=== PATIENT | male | born 1955 | race Caucasian/White ===

== ENCOUNTER 2016-11-28 19:26 | Inpatient (IN) | payer SELFPAY ==
[2016-11-28] VITALS (8 sets, daily range): BP systolic 111–122; BP diastolic 59–67; PULSE 104–122; RESP 16–23; TEMP 96.9; O2SAT 93–98
[~2016-11-28] VITALS: Ht 177.8 cm; Wt 96.2 kg
[2016-11-28] MEDS ORDERED: ONDANSETRON HCL 4 MG/2 ML VIAL ONE (19:33)
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
[2016-11-28 19:55] LABS: AUTOMATED NEUTROPHIL # 2.1 TH/MM3 (1.8-7.7); BASOPHIL # 0.1 TH/MM3 (0-0.2); BASOPHIL % 2.2 % (0.0-2.0); EOSINOPHIL # 0.1 TH/MM3 (0-0.4); EOSINOPHIL % 1.2 % (0.0-4.0); HEMATOCRIT 35.8 % (39.0-51.0); HEMO FLAGS DIFF FINAL; LYMPH % 44.8 % (9.0-44.0); LYMPHOCYTE # 2.4 TH/MM3 (1.0-4.8); MEAN CORPUSCULAR HEMOGLOBIN 33.8 PG (27.0-34.0); MEAN CORPUSCULAR HGB CONC 33.5 % (32.0-36.0); NEUT % 39.8 % (16.0-70.0); PLATELET COUNT 171 TH/MM3 (150-450); RED BLOOD COUNT 3.54 MIL/MM3 (4.50-5.90); RED CELL DISTRIBUTION WIDTH 16.1 % (11.6-17.2); WHITE BLOOD COUNT 5.3 TH/MM3 (4.0-11.0)
[2016-11-28] MEDS ORDERED: IOHEXOL 350 MG/ML 10 ML VIAL (for RAD DIAG) IV ONE (19:58)
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
[2016-11-28 20:00] LABS: I-STAT POTASSIUM 3.7 MMOL/L (3.5-4.9)
[2016-11-28] MEDS ORDERED: ENALAPRILAT 1.25 MG/ML VIAL IV PRN (20:00)
[2016-11-28] MEDS ORDERED: MISCELLANEOUS NURSING INFORMATION XX SCH (20:00)
[2016-11-28] MEDS ORDERED: CHLORHEXIDINE GLUCONATE 2 % 1 PACK (2 CLOTHS) TOP PRN (20:00)
[2016-11-28] MEDS ORDERED: ONDANSETRON HCL 4 MG/2 ML VIAL IV PRN (20:00)
[2016-11-28] MEDS ORDERED: MORPHINE SULFATE 4 MG/ML INJ IV PRN (20:00)
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
[2016-11-28 20:06] LABS: APTT (PATIENT) 22.3 SEC (24.3-30.1); PROTHROMBIN TIME - PATIENT 10.7 SEC (9.8-11.6)
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
[2016-11-28] MEDS: LACTATED RINGER'S 1000 ML INJ 1,000 ML IV SCH (20:46)
[2016-11-28] MEDS: PANTOPRAZOLE SODIUM 40 MG VIAL IVP SCH (20:47)
[2016-11-28 22:05] LABS: REVIEW FLAG FINAL
[2016-11-28 22:07] LABS: AMPHETAMINE, URINE NEG (NEG); BARBITURATES, URINE NEG (NEG); COCAINE, URINE NEG (NEG)
[2016-11-28] MEDS ORDERED: LORazepam 2 MG/ML VIAL IV SCH (23:00)
[2016-11-29] VITALS (14 sets, daily range): BP systolic 122–149; BP diastolic 68–86; PULSE 108–141; RESP 19–25; TEMP 97.9–98.5; O2SAT 94–96
[2016-11-29 00:13] LABS: REVIEW FLAG FINAL
[2016-11-29] MEDS: CHLORHEXIDINE GLUCONATE 2 % 1 PACK (2 CLOTHS) TOP SCH (04:30)
[2016-11-29] MEDS: LACTATED RINGER'S 1000 ML INJ 1,000 ML IV SCH ×3 (04:30→17:08)
[2016-11-29 04:40] LABS: HEMATOCRIT 28.1 % (39.0-51.0); REVIEW FLAG FINAL
[2016-11-29 04:41] LABS: AUTOMATED NEUTROPHIL # 10.7 TH/MM3 (1.8-7.7); BASOPHIL % 0.2 % (0.0-2.0); HEMATOCRIT 28.2 % (39.0-51.0); HEMO FLAGS DIFF FINAL; LYMPH % 4.8 % (9.0-44.0); LYMPHOCYTE # 0.6 TH/MM3 (1.0-4.8); MEAN CELL VOLUME 101.2 FL (80.0-100.0); MEAN CORPUSCULAR HGB CONC 33.6 % (32.0-36.0); MONO % 8.4 % (0.0-8.0); NEUT % 86.6 % (16.0-70.0); PLATELET COUNT 128 TH/MM3 (150-450); RED BLOOD COUNT 2.78 MIL/MM3 (4.50-5.90); RED CELL DISTRIBUTION WIDTH 15.8 % (11.6-17.2); WHITE BLOOD COUNT 12.4 TH/MM3 (4.0-11.0)
[2016-11-29 05:06] LABS: BICARBONATE 24.1 MEQ/L (21.0-32.0)
[2016-11-29] MEDS: MORPHINE SULFATE 4 MG/ML INJ IV PRN ×4 (05:14→22:40)
[2016-11-29] MEDS: THIAMINE HCL 100 MG TAB PO SCH (08:52)
[2016-11-29] MEDS: FOLIC ACID 1 MG TAB PO SCH (08:52)
[2016-11-29] MEDS ORDERED: LACTATED RINGER'S 1000 ML INJ 1,000 ML IV ONE (09:45)
[2016-11-29] MEDS ORDERED: FLUMAZENIL 0.5 MG/5 ML VIAL IV PUSH PRN (11:00)
[2016-11-29] MEDS: LORazepam 1 MG TAB PO PRN (11:37)
[2016-11-29] MEDS: LIDOCAINE HCL 5% PATCH T-DERMAL SCH (11:37)
[2016-11-29 13:08] LABS: HEMATOCRIT 26.2 % (39.0-51.0); REVIEW FLAG FINAL
[2016-11-29] MEDS: LORazepam 2 MG/ML VIAL IV PUSH PRN ×5 (13:14→22:40)
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
[2016-11-29] MEDS: PANTOPRAZOLE SODIUM 40 MG VIAL IVP SCH (19:53)
[2016-11-29] MEDS ORDERED: DEXMEDETOMIDINE 200 MCG/50 ML NS Premix IV SCH (23:30)
[2016-11-29] MEDS ORDERED: SODIUM CHLOR 0.9% 1000 ML INJ 1,000 ML IV SCH (23:30)
[2016-11-29] MEDS ORDERED: DEXMEDETOMIDINE 200 MCG in NS 50 ML IV SCH (23:45)
[2016-11-30] VITALS (14 sets, daily range): BP systolic 114–150; BP diastolic 68–88; PULSE 70–138; RESP 17–23; TEMP 97–98.8; O2SAT 92–100
[2016-11-30] MEDS: METOPROLOL TARTRATE 5 MG/5 ML VIAL IV PUSH SCH ×6 (00:33→23:52)
[2016-11-30] MEDS: LORazepam 2 MG/ML VIAL IV PUSH PRN ×3 (00:42→21:56)
[2016-11-30] MEDS: LACTATED RINGER'S 1000 ML INJ 1,000 ML IV SCH ×5 (00:57→22:42)
[2016-11-30 01:21] LABS: BLOOD, URINE NEG (NEG); GLUCOSE,URINE NEG (NEG); HYALINE CAST, URINE 1 /lpf (RARE); KETONE, URINE NEG (NEG); MUCUS URINE FEW /lpf (OCC); NITRITE,URINE NEG (NEG); PH, URINE 7.5 (5.0-8.5); SQUAMOUS EPITHELIAL CELL URINE <1 /hpf (0-5); URINE COLOR YELLOW (YELLW/STRAW)
[2016-11-30 01:22] LABS: COMMENT (UR) CULT NOT INDICATED; CULTURE IF INDICATED CULT NOT INDICATED
[2016-11-30] MEDS: CHLORHEXIDINE GLUCONATE 2 % 1 PACK (2 CLOTHS) TOP SCH (04:00)
[2016-11-30] MEDS ORDERED: DEXMEDETOMIDINE 200 MCG in NS 50 ML IV SCH (04:00)
[2016-11-30 04:56] LABS: ALT (GPT) 93 U/L (12-78); ANION GAP 7 MEQ/L (5-15); AST (GOT) 146 U/L (15-37); BICARBONATE 29.5 MEQ/L (21.0-32.0); BLOOD UREA NITROGEN 7 MG/DL (7-18); CHLORIDE 106 MEQ/L (98-107); GLOMERULAR FILTRATION RATE 139 ML/MIN (>89); POTASSIUM 3.9 MEQ/L (3.5-5.1); SODIUM (NA) 142 MEQ/L (136-145)
[2016-11-30 04:58] LABS: ALKALINE PHOSPHATASE 63 U/L (45-117); TOTAL BILIRUBIN ADULT 0.7 MG/DL (0.2-1.0)
[2016-11-30 05:28] LABS: AUTOMATED NEUTROPHIL # 7.3 TH/MM3 (1.8-7.7); BASOPHIL % 0.2 % (0.0-2.0); EOSINOPHIL % 0.1 % (0.0-4.0); HEMATOCRIT 23.9 % (39.0-51.0); HEMO FLAGS DIFF FINAL; LYMPH % 5.2 % (9.0-44.0); LYMPHOCYTE # 0.5 TH/MM3 (1.0-4.8); MEAN CELL VOLUME 101.9 FL (80.0-100.0); MEAN CORPUSCULAR HEMOGLOBIN 34.3 PG (27.0-34.0); MEAN CORPUSCULAR HGB CONC 33.7 % (32.0-36.0); MONO % 11.2 % (0.0-8.0); NEUT % 83.3 % (16.0-70.0); PLATELET COUNT 110 TH/MM3 (150-450); RED BLOOD COUNT 2.34 MIL/MM3 (4.50-5.90); RED CELL DISTRIBUTION WIDTH 15.5 % (11.6-17.2); WHITE BLOOD COUNT 8.8 TH/MM3 (4.0-11.0)
[2016-11-30] MEDS: THIAMINE HCL 100 MG TAB PO SCH (09:00)
[2016-11-30] MEDS: FOLIC ACID 1 MG TAB PO SCH (09:00)
[2016-11-30] MEDS: LIDOCAINE HCL 5% PATCH T-DERMAL SCH (09:14)
[2016-11-30] MEDS ORDERED: DEXMEDETOMIDINE INJ 400 MCG in SODIUM CHLORIDE 0.9% INJ 96 ML IV SCH (11:45)
[2016-11-30] MEDS ORDERED: POTASSIUM PHOSPHATE MONOBASIC 500 MG TAB PO PRN (14:00)
[2016-11-30] MEDS ORDERED: POTASSIUM CHLORIDE 25 MEQ EFFERVESCENT TAB PO PRN (14:00)
[2016-11-30] MEDS ORDERED: MAGNESIUM SULFATE INJ 4 GM in SODIUM CHLORIDE 0.9% INJ 92 ML IV PRN (14:00)
[2016-11-30] MEDS ORDERED: SODIUM PHOSPHATE INJ 30 MMOL in SODIUM CHLOR 0.9% 250 ML INJ 240 ML IV PRN (14:00)
[2016-11-30] MEDS ORDERED: POTASSIUM CHLOR 40 MEQ PREMIX 100 ML IV PRN ×2 (14:00)
[2016-11-30] MEDS ORDERED: POTASSIUM CHLOR 20 MEQ PREMIX 100 ML IV PRN (14:00)
[2016-11-30] MEDS ORDERED: POTASSIUM PHOSPHATE INJ 30 MMOL in SODIUM CHLOR 0.9% 250 ML INJ 250 ML IV PRN (14:00)
[2016-11-30] MEDS ORDERED: RESP: ALBUTEROL 2.5 MG/IPRATROPIUM 0.5 MG NEB (PRN) NEB (14:00)
[2016-11-30] MEDS ORDERED: MAGNESIUM SULFATE INJ 2 GM in SODIUM CHLORIDE 0.9% INJ 96 ML IV PRN (14:00)
[2016-11-30] MEDS ORDERED: POTASSIUM PHOSPHATE MONOBASIC 500 MG TAB PO/TUBE PRN (14:00)
[2016-11-30] MEDS ORDERED: MAGNESIUM OXIDE 400 MG TAB PO PRN (14:00)
[2016-11-30] MEDS: RESP: ALBUTEROL 2.5 MG/IPRATROPIUM 0.5 MG NEB (SCH) NEB ×2 (14:41→21:14)
[2016-11-30] MEDS: ENOXAPARIN SODIUM 30 MG/0.3 ML SYRINGE SQ SCH (15:00)
[2016-11-30] MEDS: chlordiazePOXIDE 25 MG CAP PO PRN ×3 (15:36→23:51)
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
[2016-11-30] MEDS: NICOTINE 14 MG/24 HR PATCH T-DERMAL SCH (16:26)
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
[2016-11-30] MEDS: MULTIVITAMIN INJ 10 ML, THIAMINE INJ 100 MG, FOLIC ACID INJ 1 MG in SODIUM CHLORID 0.9%... IV SCH (17:24)
[2016-11-30] MEDS: LORazepam 1 MG TAB PO PRN (17:39)
[2016-11-30] MEDS: DOCUSATE SODIUM 100 MG CAP PO SCH (19:52)
[2016-11-30] MEDS: MAGNESIUM HYDROXIDE SUSP 30 ML CUP PO SCH (19:52)
[2016-11-30] MEDS: MORPHINE SULFATE 4 MG/ML INJ IV PRN (20:09)
[2016-11-30] MEDS: LORazepam 2 MG TAB PO PRN (22:41)
[2016-12-01] VITALS (14 sets, daily range): BP systolic 101–162; BP diastolic 59–86; PULSE 98–142; RESP 20–28; TEMP 97–100; O2SAT 96–100
[2016-12-01] MEDS: ENOXAPARIN SODIUM 30 MG/0.3 ML SYRINGE SQ SCH ×2 (02:33→14:04)
[2016-12-01] MEDS: LORazepam 2 MG/ML VIAL IV PUSH PRN ×12 (02:33→17:23)
[2016-12-01] MEDS: RESP: ALBUTEROL 2.5 MG/IPRATROPIUM 0.5 MG NEB (SCH) NEB ×4 (02:53→20:16)
[2016-12-01] MEDS: CHLORHEXIDINE GLUCONATE 2 % 1 PACK (2 CLOTHS) TOP SCH (03:56)
[2016-12-01 05:02] LABS: HEMATOCRIT 24.2 % (39.0-51.0); MEAN CELL VOLUME 100.9 FL (80.0-100.0); MEAN CORPUSCULAR HEMOGLOBIN 33.9 PG (27.0-34.0); MEAN CORPUSCULAR HGB CONC 33.6 % (32.0-36.0); PLATELET COUNT 121 TH/MM3 (150-450); RED CELL DISTRIBUTION WIDTH 15.3 % (11.6-17.2); REVIEW FLAG FINAL; WHITE BLOOD COUNT 9.2 TH/MM3 (4.0-11.0)
[2016-12-01] MEDS: MORPHINE SULFATE 4 MG/ML INJ IV PRN (05:03)
[2016-12-01] MEDS: METOPROLOL TARTRATE 5 MG/5 ML VIAL IV PUSH SCH ×3 (05:05→17:23)
[2016-12-01 05:38] LABS: BICARBONATE 29.1 MEQ/L (21.0-32.0)
[2016-12-01 05:41] LABS: POTASSIUM 2.9 MEQ/L (3.5-5.1)
[2016-12-01] MEDS: POTASSIUM CHLOR 20 MEQ PREMIX 100 ML IV PRN ×4 (05:45→10:10)
[2016-12-01] MEDS: chlordiazePOXIDE 25 MG CAP PO PRN ×2 (06:20→15:21)
[2016-12-01] MEDS: LACTATED RINGER'S 1000 ML INJ 1,000 ML IV SCH ×3 (07:17→21:32)
[2016-12-01] MEDS: REMOVE OLD PATCH T-DERMAL SCH (07:51)
[2016-12-01] MEDS: NICOTINE 14 MG/24 HR PATCH T-DERMAL SCH (07:51)
[2016-12-01] MEDS: DOCUSATE SODIUM 100 MG CAP PO SCH ×2 (07:51→21:18)
[2016-12-01] MEDS: LORazepam 1 MG TAB PO PRN ×2 (08:06→09:30)
[2016-12-01] MEDS: LORazepam 2 MG TAB PO PRN ×2 (08:08→21:17)
[2016-12-01] MEDS: LIDOCAINE HCL 5% PATCH T-DERMAL SCH (09:26)
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
[2016-12-01] MEDS ORDERED: METOPROLOL TARTRATE 5 MG/5 ML VIAL IV PUSH PRN (15:15)
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
[2016-12-01] MEDS: cloNIDine HCL 0.1 MG TAB PO SCH ×2 (15:53→21:18)
[2016-12-01] MEDS: MULTIVITAMIN INJ 10 ML, THIAMINE INJ 100 MG, FOLIC ACID INJ 1 MG in SODIUM CHLORID 0.9%... IV SCH (16:32)
[2016-12-01] MEDS: MAGNESIUM HYDROXIDE SUSP 30 ML CUP PO SCH (21:18)
[2016-12-02] VITALS (16 sets, daily range): BP systolic 105–148; BP diastolic 61–77; PULSE 88–126; RESP 25–31; TEMP 97.9–98.8; O2SAT 94–100
[2016-12-02] MEDS: METOPROLOL TARTRATE 5 MG/5 ML VIAL IV PUSH SCH ×3 (00:18→12:00)
[2016-12-02] MEDS: LORazepam 2 MG/ML VIAL IV PUSH PRN ×3 (01:52→21:22)
[2016-12-02] MEDS: LACTATED RINGER'S 1000 ML INJ 1,000 ML IV SCH ×3 (02:58→17:04)
[2016-12-02] MEDS: RESP: ALBUTEROL 2.5 MG/IPRATROPIUM 0.5 MG NEB (SCH) NEB ×3 (03:19→20:11)
[2016-12-02] MEDS: ENOXAPARIN SODIUM 30 MG/0.3 ML SYRINGE SQ SCH ×2 (03:30→16:22)
[2016-12-02] MEDS: LORazepam 1 MG TAB PO PRN ×2 (04:14→17:05)
[2016-12-02] MEDS: CHLORHEXIDINE GLUCONATE 2 % 1 PACK (2 CLOTHS) TOP SCH (04:14)
[2016-12-02 05:48] LABS: BICARBONATE 27.2 MEQ/L (21.0-32.0); MAGNESIUM 1.8 MG/DL (1.5-2.5); POTASSIUM 3.6 MEQ/L (3.5-5.1)
[2016-12-02] MEDS: chlordiazePOXIDE 25 MG CAP PO PRN (07:35)
[2016-12-02] MEDS: LIDOCAINE HCL 5% PATCH T-DERMAL SCH ×2 (09:00→17:37)
[2016-12-02] MEDS: DOCUSATE SODIUM 100 MG CAP PO SCH ×2 (09:33→21:22)
[2016-12-02] MEDS: REMOVE OLD PATCH T-DERMAL SCH (09:34)
[2016-12-02] MEDS: LACTULOSE SYRUP 20 GM/30 ML CUP PO SCH (09:34)
[2016-12-02] MEDS: cloNIDine HCL 0.1 MG TAB PO SCH ×2 (09:34→21:22)
[2016-12-02] MEDS: NICOTINE 14 MG/24 HR PATCH T-DERMAL SCH (09:34)
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
[2016-12-02] MEDS: MULTIVITAMIN INJ 10 ML, THIAMINE INJ 100 MG, FOLIC ACID INJ 1 MG in SODIUM CHLORID 0.9%... IV SCH (16:23)
[2016-12-02] MEDS: MAGNESIUM HYDROXIDE SUSP 30 ML CUP PO SCH (21:22)
[2016-12-03] VITALS (13 sets, daily range): BP systolic 107–159; BP diastolic 63–84; PULSE 86–122; RESP 17–25; TEMP 96.6–98.8; O2SAT 93–100
[2016-12-03] MEDS: POTASSIUM CHLOR 20 MEQ PREMIX 100 ML IV PRN (00:02)
[2016-12-03] MEDS: ENOXAPARIN SODIUM 30 MG/0.3 ML SYRINGE SQ SCH ×2 (03:12→14:56)
[2016-12-03] MEDS: CHLORHEXIDINE GLUCONATE 2 % 1 PACK (2 CLOTHS) TOP SCH (03:13)
[2016-12-03] MEDS: RESP: ALBUTEROL 2.5 MG/IPRATROPIUM 0.5 MG NEB (SCH) NEB ×4 (03:49→21:10)
[2016-12-03] MEDS: MORPHINE SULFATE 4 MG/ML INJ IV PRN ×2 (08:56→17:56)
[2016-12-03] MEDS: NICOTINE 14 MG/24 HR PATCH T-DERMAL SCH (08:56)
[2016-12-03] MEDS: REMOVE OLD PATCH T-DERMAL SCH (08:56)
[2016-12-03] MEDS: LACTULOSE SYRUP 20 GM/30 ML CUP PO SCH (08:56)
[2016-12-03] MEDS: DOCUSATE SODIUM 100 MG CAP PO SCH ×2 (08:56→20:18)
[2016-12-03] MEDS: cloNIDine HCL 0.1 MG TAB PO SCH ×3 (08:57→20:18)
[2016-12-03] MEDS: LIDOCAINE HCL 5% PATCH T-DERMAL SCH (08:57)
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
[2016-12-03] MEDS ORDERED: LACTATED RINGER'S 1000 ML INJ 1,000 ML IV ONE (10:15)
[2016-12-03] MEDS: MULTIVITAMIN INJ 10 ML, THIAMINE INJ 100 MG, FOLIC ACID INJ 1 MG in SODIUM CHLORID 0.9%... IV SCH (15:38)
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
[2016-12-03] MEDS: SODIUM CHLORIDE 0.9% FLUSH 10 ML FLUSH IV FLUSH PRN (17:58)
[2016-12-03] MEDS: LORazepam 1 MG TAB PO PRN (20:16)
[2016-12-03] MEDS: MAGNESIUM HYDROXIDE SUSP 30 ML CUP PO SCH (20:17)
[2016-12-03] MEDS: METOPROLOL TARTRATE 25 MG TAB PO SCH (20:24)
[2016-12-04] VITALS (9 sets, daily range): BP systolic 123–138; BP diastolic 66–82; PULSE 100–119; RESP 16–20; TEMP 97.1–99.1; O2SAT 90–98
[2016-12-04] MEDS: ENOXAPARIN SODIUM 30 MG/0.3 ML SYRINGE SQ SCH ×2 (02:23→14:42)
[2016-12-04] MEDS: LORazepam 1 MG TAB PO PRN ×3 (02:23→18:06)
[2016-12-04] MEDS: CHLORHEXIDINE GLUCONATE 2 % 1 PACK (2 CLOTHS) TOP SCH (02:23)
[2016-12-04] MEDS: RESP: ALBUTEROL 2.5 MG/IPRATROPIUM 0.5 MG NEB (SCH) NEB ×2 (02:30→07:35)
[2016-12-04 07:59] LABS: AUTOMATED NEUTROPHIL # 6.1 TH/MM3 (1.8-7.7); BASOPHIL % 0.4 % (0.0-2.0); EOSINOPHIL # 0.1 TH/MM3 (0-0.4); EOSINOPHIL % 1.3 % (0.0-4.0); HEMATOCRIT 24.9 % (39.0-51.0); HEMO FLAGS DIFF FINAL; LYMPH % 8.7 % (9.0-44.0); LYMPHOCYTE # 0.7 TH/MM3 (1.0-4.8); MEAN CELL VOLUME 103.6 FL (80.0-100.0); MEAN CORPUSCULAR HEMOGLOBIN 36.1 PG (27.0-34.0); MEAN CORPUSCULAR HGB CONC 34.8 % (32.0-36.0); MONO % 16.1 % (0.0-8.0); NEUT % 73.5 % (16.0-70.0); PLATELET COUNT 253 TH/MM3 (150-450); RED CELL DISTRIBUTION WIDTH 16.2 % (11.6-17.2); WHITE BLOOD COUNT 8.3 TH/MM3 (4.0-11.0)
[2016-12-04 08:14] LABS: ALT (GPT) 70 U/L (12-78); ANION GAP 8 MEQ/L (5-15); AST (GOT) 69 U/L (15-37); BICARBONATE 26.3 MEQ/L (21.0-32.0); BLOOD UREA NITROGEN 4 MG/DL (7-18); CHLORIDE 104 MEQ/L (98-107); GLOMERULAR FILTRATION RATE 165 ML/MIN (>89); MAGNESIUM 2.1 MG/DL (1.5-2.5); POTASSIUM 3.9 MEQ/L (3.5-5.1); SODIUM (NA) 138 MEQ/L (136-145)
[2016-12-04 08:16] LABS: ALKALINE PHOSPHATASE 87 U/L (45-117); TOTAL BILIRUBIN ADULT 0.6 MG/DL (0.2-1.0)
[2016-12-04] MEDS: DOCUSATE SODIUM 100 MG CAP PO SCH ×2 (08:26→21:01)
[2016-12-04] MEDS: METOPROLOL TARTRATE 25 MG TAB PO SCH ×2 (08:26→21:02)
[2016-12-04] MEDS: cloNIDine HCL 0.1 MG TAB PO SCH (08:27)
[2016-12-04] MEDS: LACTULOSE SYRUP 20 GM/30 ML CUP PO SCH (08:27)
[2016-12-04] MEDS: REMOVE OLD PATCH T-DERMAL SCH (08:27)
[2016-12-04] MEDS: NICOTINE 14 MG/24 HR PATCH T-DERMAL SCH (08:28)
[2016-12-04] MEDS: LIDOCAINE HCL 5% PATCH T-DERMAL SCH (08:28)
[2016-12-04] MEDS: MORPHINE SULFATE 4 MG/ML INJ IV PRN ×2 (08:32→21:04)
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
[2016-12-04] MEDS ORDERED: LISI-515 PO (11:04)
[2016-12-04] MEDS ORDERED: AMLO5 PO (11:04)
--- NOTE | 2016-12-04 12:07 | RADRPT ---
EXAM DATE/TIME: 12/04/2016 11:29 [place] COMPARISON: CHEST SINGLE AP, November 28, 2016, 19:22. INDICATIONS : Shortness of breath. MEDICAL HISTORY : None. SURGICAL HISTORY : None. ENCOUNTER: Initial ACUITY: 2 days PAIN SCORE: 0/10 LOCATION: Bilateral chest FINDINGS: Increasing density is identified in both lung bases. Heart and mediastinal structures are stable. Osseous structures are intact. CONCLUSION: New bibasilar airspace disease and small effusions. Souleymane Cameron MD on December 04, 2016 at 12:04 Board Certified Radiologist. This report was verified electronically.
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
[2016-12-04] MEDS: MULTIVITAMIN INJ 10 ML, THIAMINE INJ 100 MG, FOLIC ACID INJ 1 MG in SODIUM CHLORID 0.9%... IV SCH (18:01)
[2016-12-04] MEDS: MAGNESIUM HYDROXIDE SUSP 30 ML CUP PO SCH (21:00)
[2016-12-05] VITALS (7 sets, daily range): BP systolic 113–160; BP diastolic 65–94; PULSE 104–115; RESP 18–20; TEMP 97.7–98.9; O2SAT 94–98
[2016-12-05] MEDS: MORPHINE SULFATE 4 MG/ML INJ IV PRN ×4 (02:05→20:49)
[2016-12-05] MEDS: ENOXAPARIN SODIUM 30 MG/0.3 ML SYRINGE SQ SCH ×2 (02:05→13:54)
[2016-12-05] MEDS: SODIUM CHLORIDE 0.9% FLUSH 10 ML FLUSH IV FLUSH PRN ×2 (07:48→13:54)
[2016-12-05] MEDS: amLODIPine BESYLATE 5 MG TAB PO SCH (08:50)
[2016-12-05] MEDS: DOCUSATE SODIUM 100 MG CAP PO SCH ×2 (08:50→20:43)
[2016-12-05] MEDS: LACTULOSE SYRUP 20 GM/30 ML CUP PO SCH (08:50)
[2016-12-05] MEDS: METOPROLOL TARTRATE 25 MG TAB PO SCH ×2 (08:50→20:43)
[2016-12-05] MEDS: LIDOCAINE HCL 5% PATCH T-DERMAL SCH (08:51)
[2016-12-05] MEDS: NICOTINE 14 MG/24 HR PATCH T-DERMAL SCH (08:51)
[2016-12-05] MEDS: REMOVE OLD PATCH T-DERMAL SCH (08:51)
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
[2016-12-05] MEDS: LISINOPRIL 20 MG TAB PO SCH (15:00)
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
[2016-12-05] MEDS: MULTIVITAMIN INJ 10 ML, THIAMINE INJ 100 MG, FOLIC ACID INJ 1 MG in SODIUM CHLORID 0.9%... IV SCH (19:40)
[2016-12-05] MEDS: MAGNESIUM HYDROXIDE SUSP 30 ML CUP PO SCH (20:43)
[2016-12-06] VITALS (7 sets, daily range): BP systolic 135–144; BP diastolic 71–80; PULSE 103–110; RESP 17–20; TEMP 96.4–98.4; O2SAT 93–99
[2016-12-06] MEDS: ENOXAPARIN SODIUM 30 MG/0.3 ML SYRINGE SQ SCH ×2 (03:34→14:23)
[2016-12-06 06:26] LABS: AUTOMATED NEUTROPHIL # 5.8 TH/MM3 (1.8-7.7); BASOPHIL % 0.5 % (0.0-2.0); EOSINOPHIL # 0.2 TH/MM3 (0-0.4); EOSINOPHIL % 1.8 % (0.0-4.0); HEMATOCRIT 27.4 % (39.0-51.0); HEMO FLAGS DIFF FINAL; LYMPH % 8.2 % (9.0-44.0); LYMPHOCYTE # 0.7 TH/MM3 (1.0-4.8); MEAN CELL VOLUME 104.6 FL (80.0-100.0); MEAN CORPUSCULAR HEMOGLOBIN 34.3 PG (27.0-34.0); MEAN CORPUSCULAR HGB CONC 32.8 % (32.0-36.0); MONO % 21.8 % (0.0-8.0); NEUT % 67.7 % (16.0-70.0); PLATELET COUNT 404 TH/MM3 (150-450); RED BLOOD COUNT 2.62 MIL/MM3 (4.50-5.90); RED CELL DISTRIBUTION WIDTH 15.9 % (11.6-17.2); WHITE BLOOD COUNT 8.6 TH/MM3 (4.0-11.0)
[2016-12-06 07:02] LABS: ALT (GPT) 75 U/L (12-78); ANION GAP 7 MEQ/L (5-15); AST (GOT) 67 U/L (15-37); BICARBONATE 30.2 MEQ/L (21.0-32.0); BLOOD UREA NITROGEN 5 MG/DL (7-18); CHLORIDE 101 MEQ/L (98-107); GLOMERULAR FILTRATION RATE 145 ML/MIN (>89); POTASSIUM 3.9 MEQ/L (3.5-5.1); SODIUM (NA) 138 MEQ/L (136-145)
[2016-12-06 07:04] LABS: ALKALINE PHOSPHATASE 108 U/L (45-117); TOTAL BILIRUBIN ADULT 0.6 MG/DL (0.2-1.0)
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
[2016-12-06] MEDS: DOCUSATE SODIUM 100 MG CAP PO SCH ×2 (09:00→21:00)
[2016-12-06] MEDS: REMOVE OLD PATCH T-DERMAL SCH (09:00)
[2016-12-06] MEDS: LISINOPRIL 20 MG TAB PO SCH (09:11)
[2016-12-06] MEDS: NICOTINE 14 MG/24 HR PATCH T-DERMAL SCH (09:11)
[2016-12-06] MEDS: METOPROLOL TARTRATE 25 MG TAB PO SCH ×2 (09:11→22:11)
[2016-12-06] MEDS: LACTULOSE SYRUP 20 GM/30 ML CUP PO SCH (09:11)
[2016-12-06] MEDS: amLODIPine BESYLATE 5 MG TAB PO SCH (09:11)
[2016-12-06] MEDS: LIDOCAINE HCL 5% PATCH T-DERMAL SCH (09:12)
[2016-12-06] MEDS: MORPHINE SULFATE 4 MG/ML INJ IV PRN ×2 (16:47→22:11)
[2016-12-06] MEDS: MAGNESIUM HYDROXIDE SUSP 30 ML CUP PO SCH (21:00)
[2016-12-07] MEDS: ENOXAPARIN SODIUM 30 MG/0.3 ML SYRINGE SQ SCH ×2 (02:32→14:27)
[2016-12-07] MEDS: MORPHINE SULFATE 4 MG/ML INJ IV PRN ×3 (02:56→23:59)
[2016-12-07 08:00] VITALS: BP 134/78; PULSE 101; RESP 18; TEMP 97.8; O2SAT 97
[2016-12-07] MEDS: LACTULOSE SYRUP 20 GM/30 ML CUP PO SCH (08:05)
[2016-12-07] MEDS: DOCUSATE SODIUM 100 MG CAP PO SCH ×2 (08:05→20:32)
[2016-12-07] MEDS: REMOVE OLD PATCH T-DERMAL SCH (08:05)
[2016-12-07] MEDS: METOPROLOL TARTRATE 25 MG TAB PO SCH ×2 (08:05→20:32)
[2016-12-07] MEDS: NICOTINE 14 MG/24 HR PATCH T-DERMAL SCH (08:05)
[2016-12-07] MEDS: LIDOCAINE HCL 5% PATCH T-DERMAL SCH (08:05)
[2016-12-07] MEDS: amLODIPine BESYLATE 5 MG TAB PO SCH (08:06)
[2016-12-07] MEDS: LISINOPRIL 20 MG TAB PO SCH (08:06)
[2016-12-07 08:10] VITALS: O2SAT 93
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
[2016-12-07 12:00] VITALS: BP 92/50; PULSE 97; RESP 17; TEMP 97.6; O2SAT 97
[2016-12-07 16:00] VITALS: BP 124/65; PULSE 96; RESP 18; TEMP 98.7; O2SAT 99
[2016-12-07] MEDS: MAGNESIUM HYDROXIDE SUSP 30 ML CUP PO SCH (20:34)
[2016-12-07 20:44] VITALS: BP 121/63; PULSE 89; RESP 17; TEMP 99.1; O2SAT 95
[2016-12-07 22:04] VITALS: O2SAT 96
[2016-12-08] VITALS (7 sets, daily range): BP systolic 105–136; BP diastolic 58–70; PULSE 88–101; RESP 16–18; TEMP 96.7–99.8; O2SAT 95–99
[2016-12-08] MEDS: ENOXAPARIN SODIUM 30 MG/0.3 ML SYRINGE SQ SCH ×2 (04:12→17:36)
[2016-12-08 07:27] LABS: AUTOMATED NEUTROPHIL # 4.7 TH/MM3 (1.8-7.7); BASOPHIL # 0.1 TH/MM3 (0-0.2); EOSINOPHIL # 0.2 TH/MM3 (0-0.4); EOSINOPHIL % 3.2 % (0.0-4.0); HEMATOCRIT 26.7 % (39.0-51.0); HEMO FLAGS DIFF FINAL; LYMPH % 13.2 % (9.0-44.0); MEAN CELL VOLUME 102.7 FL (80.0-100.0); MEAN CORPUSCULAR HEMOGLOBIN 35.9 PG (27.0-34.0); MEAN CORPUSCULAR HGB CONC 34.9 % (32.0-36.0); MONO % 20.8 % (0.0-8.0); NEUT % 61.8 % (16.0-70.0); PLATELET COUNT 551 TH/MM3 (150-450); RED CELL DISTRIBUTION WIDTH 15.6 % (11.6-17.2); WHITE BLOOD COUNT 7.7 TH/MM3 (4.0-11.0)
[2016-12-08 07:39] LABS: ALT (GPT) 61 U/L (12-78); ANION GAP 9 MEQ/L (5-15); AST (GOT) 44 U/L (15-37); BLOOD UREA NITROGEN 7 MG/DL (7-18); CHLORIDE 102 MEQ/L (98-107); GLOMERULAR FILTRATION RATE 142 ML/MIN (>89); POTASSIUM 3.3 MEQ/L (3.5-5.1); SODIUM (NA) 139 MEQ/L (136-145)
[2016-12-08 07:41] LABS: ALKALINE PHOSPHATASE 112 U/L (45-117); TOTAL BILIRUBIN ADULT 0.5 MG/DL (0.2-1.0)
[2016-12-08] MEDS: REMOVE OLD PATCH T-DERMAL SCH (09:00)
[2016-12-08] MEDS: LISINOPRIL 20 MG TAB PO SCH (09:19)
[2016-12-08] MEDS: METOPROLOL TARTRATE 25 MG TAB PO SCH ×2 (09:20→23:06)
[2016-12-08] MEDS: amLODIPine BESYLATE 5 MG TAB PO SCH (09:21)
[2016-12-08] MEDS: DOCUSATE SODIUM 100 MG CAP PO SCH ×2 (09:21→23:06)
[2016-12-08] MEDS: LACTULOSE SYRUP 20 GM/30 ML CUP PO SCH (09:22)
[2016-12-08] MEDS: LIDOCAINE HCL 5% PATCH T-DERMAL SCH (09:22)
[2016-12-08] MEDS: PILL SPLITTER OTHER PRN ×2 (09:22→23:08)
[2016-12-08] MEDS: NICOTINE 14 MG/24 HR PATCH T-DERMAL SCH (09:22)
[2016-12-08] MEDS: MORPHINE SULFATE 4 MG/ML INJ IV PRN (12:31)
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
--- NOTE | 2016-12-08 15:30 | RADRPT ---
EXAM DATE/TIME: 12/08/2016 15:18 [place] COMPARISON: CHEST SINGLE AP, December 04, 2016, 11:29. INDICATIONS : Short of breath. MEDICAL HISTORY : None. SURGICAL HISTORY : None. ENCOUNTER: Subsequent ACUITY: 1 week PAIN SCORE: 4/10 LOCATION: Bilateral chest FINDINGS: A single view of the chest demonstrates the lungs to be symmetrically aerated without evidence of mas s, or infiltrate. Small bilateral pleural effusions right greater left, smaller than on the 15th. The cardiomediastinal contours are unremarkable. Osseous structures are intact. CONCLUSION: Normal examination. except for small bilateral pleural effusions Sathish Pereira MD on December 08, 2016 at 15:28 Board Certified Radiologist. This report was verified electronically.
[2016-12-08] MEDS ORDERED: MAGNESIUM HYDROXIDE SUSP 30 ML CUP PO PRN (16:15)
[2016-12-08] MEDS ORDERED: ACETAMINOPHEN/HYDROcodone 325 MG/5 MG TAB PO PRN (16:15)
[2016-12-08] MEDS ORDERED: predniSONE 20 MG TAB PO ONE (18:00)
[2016-12-08] MEDS: MORPHINE SULFATE 15 MG TAB PO PRN (23:07)
[2016-12-09 00:01] VITALS: BP 141/69; PULSE 82; RESP 17; TEMP 98.8; O2SAT 95
[2016-12-09] MEDS: ENOXAPARIN SODIUM 30 MG/0.3 ML SYRINGE SQ SCH ×2 (03:32→14:31)
[2016-12-09] MEDS: MORPHINE SULFATE 15 MG TAB PO PRN ×3 (07:11→22:23)
[2016-12-09 08:00] VITALS: BP 123/68; PULSE 97; RESP 17; TEMP 97.4; O2SAT 90
[2016-12-09] MEDS: LISINOPRIL 20 MG TAB PO SCH (09:38)
[2016-12-09] MEDS: DOCUSATE SODIUM 100 MG CAP PO SCH ×2 (09:38→21:00)
[2016-12-09] MEDS: amLODIPine BESYLATE 5 MG TAB PO SCH (09:38)
[2016-12-09] MEDS: METOPROLOL TARTRATE 25 MG TAB PO SCH ×2 (09:38→22:23)
[2016-12-09] MEDS: predniSONE 10 MG TAB PO SCH ×2 (09:38→22:22)
[2016-12-09] MEDS: PILL SPLITTER OTHER PRN (09:38)
[2016-12-09] MEDS: LACTULOSE SYRUP 20 GM/30 ML CUP PO SCH (09:38)
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
[2016-12-09] MEDS: LIDOCAINE HCL 5% PATCH T-DERMAL SCH (09:41)
[2016-12-09 11:37] VITALS: O2SAT 95
[2016-12-09 12:00] VITALS: BP 97/57; PULSE 94; RESP 17; TEMP 97.5; O2SAT 98
[2016-12-09 16:00] VITALS: BP 96/66; PULSE 87; RESP 17; TEMP 96.5; O2SAT 96
[2016-12-09 20:00] VITALS: BP 112/58; PULSE 93; RESP 20; TEMP 96.2; O2SAT 100
[2016-12-10] VITALS (7 sets, daily range): BP systolic 101–116; BP diastolic 58–69; PULSE 81–99; RESP 16–20; TEMP 97–98.6; O2SAT 92–100
[2016-12-10] MEDS: MORPHINE SULFATE 15 MG TAB PO PRN ×3 (05:32→20:50)
[2016-12-10] MEDS: ENOXAPARIN SODIUM 30 MG/0.3 ML SYRINGE SQ SCH ×2 (05:32→16:13)
[2016-12-10 05:59] LABS: AUTOMATED NEUTROPHIL # 9.2 TH/MM3 (1.8-7.7); BASOPHIL % 0.4 % (0.0-2.0); EOSINOPHIL % 0.3 % (0.0-4.0); HEMATOCRIT 27.7 % (39.0-51.0); HEMO FLAGS DIFF FINAL; LYMPH % 7.3 % (9.0-44.0); LYMPHOCYTE # 0.8 TH/MM3 (1.0-4.8); MEAN CELL VOLUME 101.8 FL (80.0-100.0); MEAN CORPUSCULAR HEMOGLOBIN 35.1 PG (27.0-34.0); MEAN CORPUSCULAR HGB CONC 34.4 % (32.0-36.0); MONO % 8.7 % (0.0-8.0); NEUT % 83.3 % (16.0-70.0); PLATELET COUNT 673 TH/MM3 (150-450); RED BLOOD COUNT 2.72 MIL/MM3 (4.50-5.90); RED CELL DISTRIBUTION WIDTH 15.5 % (11.6-17.2)
[2016-12-10 06:51] LABS: ALKALINE PHOSPHATASE 128 U/L (45-117); ALT (GPT) 50 U/L (12-78); ANION GAP 8 MEQ/L (5-15); AST (GOT) 24 U/L (15-37); BICARBONATE 26.7 MEQ/L (21.0-32.0); BLOOD UREA NITROGEN 9 MG/DL (7-18); CHLORIDE 101 MEQ/L (98-107); GLOMERULAR FILTRATION RATE 114 ML/MIN (>89); POTASSIUM 4.3 MEQ/L (3.5-5.1); SODIUM (NA) 136 MEQ/L (136-145); TOTAL BILIRUBIN ADULT 0.5 MG/DL (0.2-1.0)
[2016-12-10] MEDS: predniSONE 10 MG TAB PO SCH ×2 (09:00→20:50)
[2016-12-10] MEDS: LACTULOSE SYRUP 20 GM/30 ML CUP PO SCH (14:01)
[2016-12-10] MEDS: METOPROLOL TARTRATE 25 MG TAB PO SCH ×2 (14:02→20:51)
[2016-12-10] MEDS: DOCUSATE SODIUM 100 MG CAP PO SCH ×2 (14:02→20:51)
[2016-12-10] MEDS: LIDOCAINE HCL 5% PATCH T-DERMAL SCH (14:03)
[2016-12-10] MEDS: amLODIPine BESYLATE 5 MG TAB PO SCH (14:03)
[2016-12-10] MEDS: LISINOPRIL 20 MG TAB PO SCH (14:03)
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
[2016-12-11] VITALS: BP 109/64; PULSE 91; RESP 19; TEMP 96.8; O2SAT 97
[2016-12-11] MEDS: ENOXAPARIN SODIUM 30 MG/0.3 ML SYRINGE SQ SCH ×2 (04:51→15:35)
[2016-12-11 08:00] VITALS: BP 121/70; PULSE 99; RESP 18; TEMP 97.5; O2SAT 93
[2016-12-11] MEDS: DOCUSATE SODIUM 100 MG CAP PO SCH ×2 (09:20→21:00)
[2016-12-11] MEDS: LACTULOSE SYRUP 20 GM/30 ML CUP PO SCH (09:20)
[2016-12-11] MEDS: MORPHINE SULFATE 15 MG TAB PO PRN ×3 (09:20→21:37)
[2016-12-11] MEDS: predniSONE 10 MG TAB PO SCH (09:20)
[2016-12-11] MEDS: amLODIPine BESYLATE 5 MG TAB PO SCH (09:21)
[2016-12-11] MEDS: METOPROLOL TARTRATE 25 MG TAB PO SCH ×2 (09:21→21:00)
[2016-12-11] MEDS: LISINOPRIL 20 MG TAB PO SCH (09:21)
[2016-12-11] MEDS: LIDOCAINE HCL 5% PATCH T-DERMAL SCH (09:22)
[2016-12-11 09:29] VITALS: O2SAT 94
[2016-12-11 12:00] VITALS: BP 92/57; PULSE 92; RESP 16; TEMP 96.9; O2SAT 98
[2016-12-11 16:00] VITALS: BP 97/57; PULSE 97; RESP 16; TEMP 97.6; O2SAT 94
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
[2016-12-11 20:00] VITALS: BP 99/58; PULSE 91; RESP 19; TEMP 97.8; O2SAT 98
[2016-12-12] VITALS: BP_SYST 113; BP_SYST 114; BP_DIAS 58; BP_DIAS 70; PULSE 67; PULSE 98; RESP 19; RESP 20; TEMP 96.3; TEMP 97.8; O2SAT 95; O2SAT 97
[2016-12-12 08:00] VITALS: BP 113/59; PULSE 115; RESP 20; TEMP 97.5; O2SAT 93
[2016-12-12] MEDS: LIDOCAINE HCL 5% PATCH T-DERMAL SCH (08:00)
[2016-12-12] MEDS: DOCUSATE SODIUM 100 MG CAP PO SCH (08:00)
[2016-12-12] MEDS: METOPROLOL TARTRATE 25 MG TAB PO SCH (08:00)
[2016-12-12] MEDS: LACTULOSE SYRUP 20 GM/30 ML CUP PO SCH (08:00)
[2016-12-12] MEDS: MORPHINE SULFATE 15 MG TAB PO PRN (08:08)
[2016-12-12] MEDS ORDERED: predniSONE 10 MG TAB PO SCH (09:00)
[2016-12-12] MEDS ORDERED: ENOXAPARIN SODIUM 40 MG/0.4 ML SYRINGE SQ SCH (09:00)
[2016-12-12] MEDS ORDERED: MSIR15 PO (09:40)
[2016-12-12] MEDS ORDERED: [UNRECOGNIZED DRUG - OTHER] (11:12)
[2016-12-12] MEDS ORDERED: METO25TA3 PO (11:20)
[2016-12-12] MEDS ORDERED: PRED10 PO (11:20)
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
[2016-12-12 12:00] VITALS: BP_SYST 100; BP_SYST 132; BP_DIAS 57; BP_DIAS 74; PULSE 89; RESP 16; TEMP 97.7; O2SAT 93
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
== END 2016-12-12 15:05 | disposition home or self-care (01) | DRG 605 ==
LOC: NEPI 19:26 → EDBD 19:59 → NEDA 19:59 → N03A 22:27 → N07B 12-03 17:14
PROVIDERS: ADMIT Surgery; ATTEND Internal Medicine
DX: S30.1XXA Contusion of abdominal wall, initial encounter (principal); F10.231 Alcohol dependence with withdrawal delirium; I95.9 Hypotension, unspecified; K56.7 Ileus, unspecified; S20.211A Contusion of right front wall of thorax, initial encounter; I10 Essential (primary) hypertension; J98.11 Atelectasis; D64.9 Anemia, unspecified; Y90.8 Blood alcohol level of 240 mg/100 ml or more; F10.229 Alcohol dependence with intoxication, unspecified; R06.2 Wheezing; R00.0 Tachycardia, unspecified; F17.200 Nicotine dependence, unspecified, uncomplicated; S80.02XA Contusion of left knee, initial encounter; R09.02 Hypoxemia; S70.02XA Contusion of left hip, initial encounter; V43.52XA Car driver injured in collision with other type car in traffic accident, initial encounter; Y92.410 Unspecified street and highway as the place of occurrence of the external cause
CPT/HCPCS: 70450; 70486; 71010; 71260; 72125; 72128; 72131; 72170; 74177; 80048; 80053; 80307; 81001; 82435; 82565; 82947; 82948; 83735; 84100; 84132; 84295; 84520; 85014; 85018; 85025; 85027; 85610; 85730; 86850; 86900; 86901; 86920; 87641; 94150; 94620; 94640; 94664; 94667; 94668; 96374; 96375; 99291; C9113; G0390; J1650; J2060; J2270; J2405; J3411; J3480; J7030; J7040; J7050; J7120; J7512; Q9967

== ENCOUNTER 2017-01-31 11:00 | Emergency (ER) | payer SELFPAY ==
[~2017-01-31] VITALS: Ht 177.8 cm; Wt 59.0 kg
[~2017-01-31 11:00] MED LIST: AMLO5 PO; LISI-515 PO; METO25TA3 PO; MSIR15 PO; PRED10 PO; [UNRECOGNIZED DRUG - OTHER]
[2017-01-31 11:08] VITALS: BP 135/85; PULSE 89; RESP 16; TEMP 98.3; O2SAT 99
--- NOTE | 2017-01-31 11:18 | PD ---
HPI Chief Complaint: Medical Clearance Time Seen by Provider: 11:18 Travel History International Travel<30 days: No Contact w/Intl Traveler<30days: No Traveled to known affect area: No History of Present Illness HPI 61 YO M presents to the ED for evaluation of less than 12 hour history of inability to urinate. The patient states last urination was last night around " 9 or 10 pm." Endorses mild lower abdominal cramping pain. Denies fevers, chills , CP, SOB, palpitations, nausea, vomiting, back pain, spinal injury, difficulties with ambulation, history of prostate problems. PFSH Past Medical History Hx Anticoagulant Therapy: No Cardiovascular Problems: No Chemotherapy: No Cerebrovascular Accident: No Diabetes: No GERD: Yes Genitourinary: No Musculoskeletal: No Neurologic: No Reproductive: No Respiratory: No ?: Not Past Surgical History Abdominal Surgery: Yes (RT HERNIA REPAIR X 1 AND LT HERNIA REPAIR X 4) Hysterectomy: No Social History Alcohol Use: Yes Tobacco Use: No Substance Use: No (denies, however +marijuana drug screen) Allergies-Medications (Allergen,Severity, Reaction): Coded Allergies: acetaminophen (Unverified Adverse Reaction, Intermediate, Hallucinations, 01/31/17) pt stated happened last time he took med 20 years ago hydrocodone (Unverified Adverse Reaction, Intermediate, Hallucinations, 04/08) pt stated happened last time he took med, 20 years ago. oxycodone (Unverified Adverse Reaction, Intermediate, Hallucinations, 01/31) pt stated happened last time he took med 20 years ago Reported Meds & Prescriptions Reported Meds & Active Scripts Active Prednisone 10 Mg Tab 10 Mg PO DAILY Cane with Strap/Black (Device) 1 Mis Mis 1 Ea .ROUTE DIRECTED Reported Lisinopril 20 Mg Tab 25 Mg PO DAILY Norvasc (Amlodipine Besylate) 5 Mg Tab 5 Mg PO DAILY Review of Systems Except as stated in HPI: all other systems reviewed are Neg Physical Exam Narrative GENERAL: Well-nourished, well-developed thin white male in NAD. SKIN: Focused skin assessment warm/dry. HEAD: Normocephalic. EYES: No scleral icterus. No injection or drainage. NECK: Supple, trachea midline. No JVD or lymphadenopathy. CARDIOVASCULAR: Regular rate and rhythm without murmurs, gallops, or rubs. RESPIRATORY: Breath sounds clear and equal bilaterally. No accessory muscle use. GASTROINTESTINAL: Abdomen soft, nondistended. Mild suprapubic tenderness to deep palpation.No palpable masses. MUSCULOSKELETAL: No cyanosis, or edema. Walks with a normal gait. BACK: Nontender without obvious deformity. No CVA tenderness. Data Data Last Documented VS Vital Signs Date Time Temp Pulse Resp B/P (MAP) Pulse Ox O2 Delivery O2 Flow Rate FiO2 01/31/17 13:24 01/31/17 11:16 123 18 01/31/17 11:08 98.3 99 Orders Orders Electrocardiogram (01/31/17 ) Bladder Scan PRN (01/31/17 11:23) ^ Insert Iv (01/31/17 11:23) Sodium Chlor 0.9% 1000 Ml Inj (Ns 1000 M (01/31/17 11:30) Tamsulosin (Flomax) (01/31/17 11:45) Lorazepam Inj (Ativan Inj) (01/31/17 13:15) MDM Medical Decision Making Medical Screen Exam Complete: Yes Emergency Medical Condition: Yes (61 YO M presents to the ED for evaluation of less than 12 hour history of inability to urinate. The patient states last urination was last night around "9 or 10 pm." Endorses mild lower abdominal cramping pain. Denies fevers, chills, CP, SOB, palpitations, nausea, vomiting, back pain, spinal injury, difficulties with ambulation, history of prostate problems. ) Differential Diagnosis urinary retention versus prostatic hypertrophy versus dehydration versus other Narrative Course 61 YO M presents to the ED for evaluation of less than 12 hour history of inability to urinate. The patient states last urination was last night around " 9 or 10 pm." Endorses mild lower abdominal cramping pain. Denies fevers, chills , CP, SOB, palpitations, nausea, vomiting, back pain, spinal injury, difficulties with ambulation, history of prostate problems. Vitals reviewed. Physical exam reveals mild suprapubic tenderness to deep palpation but is otherwise unremarkable. IV established. Patient administered 1 L NS bolus IV and Flomax by mouth. Bladder scan shows max bladder volume of 193 mL. Approximately 1 hour after arrival the patient spontaneously urinated ~300mL. Patient mildly tremulous and tachycardic in the exam room. Has history of chronic alcoholism, endorses "tying one one" last night. He was administered 0.5 mg Ativan IV. He was given information for urology follow-up. He is stable and discharged home. Diagnosis Primary Impression: Urination decrease Additional Impression: Alcohol withdrawal Qualified Codes: F10.230 - Alcohol dependence with withdrawal, uncomplicated Referrals: Phil Augustin MD Patient Instructions: General Instructions, Urinary Retention in Men (ED) Additional Instructions: Rest, hydrate. Follow up with the Urologist as discussed. Seek outpatient treatment for chronic alcoholism. Return to the ED for any urgent or emergent medical condition. Disposition: 01 DISCHARGE HOME Condition: Stable Isis Sherman Jan 31, 2017 11:18
[2017-01-31] MEDS ORDERED: SODIUM CHLOR 0.9% 1000 ML INJ 1,000 ML IV ONE (11:30)
[2017-01-31] MEDS: TAMSULOSIN HCL 0.4 MG CAP PO ONE ×2 (11:44→12:00)
[2017-01-31] MEDS ORDERED: LORazepam 2 MG/ML VIAL IM ONE (13:15)
--- NOTE | 2017-02-01 14:10 | EKG ---
Date Performed: 01/31/2017 Time Performed: 11:21:34 PTAGE: 61 years EKG: SINUS TACHYCARDIA ABNORMAL RHYTHM ECG NO PREVIOUS TRACING DOCTOR: Cherry Donohue Interpretating Date/Time 02/01/2017 14:06:58
== END 2017-01-31 13:25 | disposition home or self-care (01) ==
LOC: NEPE 11:00
DX: R39.198 Other difficulties with micturition (principal); F10.239 Alcohol dependence with withdrawal, unspecified; R10.30 Lower abdominal pain, unspecified; R00.0 Tachycardia, unspecified; R94.31 Abnormal electrocardiogram [ECG] [EKG]; K21.9 Gastro-esophageal reflux disease without esophagitis; Z79.899 Other long term (current) drug therapy; Z88.6 Allergy status to analgesic agent; Z88.5 Allergy status to narcotic agent
CPT/HCPCS: 93005; 96360; 96372; 99284; J2060; J7030

== ENCOUNTER 2017-01-31 20:10 | Emergency (ER) | payer SELFPAY ==
[~2017-01-31] VITALS: Ht 177.8 cm; Wt 59.0 kg
[2017-01-31 20:11] VITALS: BP 135/89; PULSE 120; RESP 16; TEMP 98.6; O2SAT 97
--- NOTE | 2017-01-31 21:20 | PD ---
HPI Chief Complaint: Complaint Time Seen by Provider: 21:20 Travel History International Travel<30 days: No Contact w/Intl Traveler<30days: No Traveled to known affect area: No History of Present Illness HPI 61-year-old male with history of alcoholism, presents to emergency department today for the second time for evaluation of inability to void. Patient was seen earlier today but was able to void on his own in the emergency department. He states since then he has not. He tells me he "even drink a beer" to help him urinate but this did not help. Reports a suprapubic pressure. No significant pain. No other symptoms to report. PFSH Past Medical History Hx Anticoagulant Therapy: No Cardiovascular Problems: No Chemotherapy: No Cerebrovascular Accident: No Diabetes: No Gastrointestinal Disorders: Yes Genitourinary: No Hypertension: Yes Musculoskeletal: No Neurologic: No Reproductive: No Respiratory: No Past Surgical History Abdominal Surgery: Yes (HERNIA REPAIR X 4) Hysterectomy: No Other Surgery: Yes ("a bunch of hernia surgeries" ) Social History Alcohol Use: Yes ("A COUPLE BEERS DAILY") Tobacco Use: Yes Substance Use: No (denies, however +marijuana drug screen) Allergies-Medications (Allergen,Severity, Reaction): Coded Allergies: acetaminophen (Unverified Adverse Reaction, Intermediate, Hallucinations, 01/31/17) pt stated happened last time he took med 20 years ago hydrocodone (Unverified Adverse Reaction, Intermediate, Hallucinations, 04/08) pt stated happened last time he took med, 20 years ago. oxycodone (Unverified Adverse Reaction, Intermediate, Hallucinations, 01/31) pt stated happened last time he took med 20 years ago Reported Meds & Prescriptions Reported Meds & Active Scripts Active Prednisone 10 Mg Tab 10 Mg PO DAILY Cane with Strap/Black (Device) 1 Mis Mis 1 Ea .ROUTE DIRECTED Reported Lisinopril 20 Mg Tab 25 Mg PO DAILY Norvasc (Amlodipine Besylate) 5 Mg Tab 5 Mg PO DAILY Review of Systems Except as stated in HPI: all other systems reviewed are Neg Physical Exam Narrative GENERAL: Well-nourished, well-developed patient in no acute distress SKIN: Focused skin assessment warm/dry. HEAD: Normocephalic. EYES: No scleral icterus. No injection or drainage. NECK: Supple, trachea midline. No JVD or lymphadenopathy. CARDIOVASCULAR: Tachycardic rate and rhythm without murmurs, gallops, or rubs. RESPIRATORY: Breath sounds equal bilaterally. No accessory muscle use. GASTROINTESTINAL: Abdomen soft, nondistended. Suprapubic tenderness to palpation. MUSCULOSKELETAL: No cyanosis, or edema. BACK: Nontender without obvious deformity. No CVA tenderness. Data Data Last Documented VS Vital Signs Date Time Temp Pulse Resp B/P (MAP) Pulse Ox O2 Delivery O2 Flow Rate FiO2 01/31/17 22:09 01/31/17 20:11 98.6 120 16 97 Room Air Orders Orders Urinary Catheter Management NATTY.Q8H (01/31/17 21:19) Remove Urinary Catheter .ONCE (01/31/17 21:41) MDM Medical Decision Making Medical Screen Exam Complete: Yes Emergency Medical Condition: Yes Medical Record Reviewed: Yes Differential Diagnosis Urinary retention versus dehydration versus obstruction versus malingering Narrative Course 61-year-old male presents to emergency department for the second time today for inability to urinate. Patient appears without distress. He states he has drank one beer since leaving to help him void but this did not help. Leger catheter is placed and patient puts out approximately 300 mL of urine. The Leger catheter is removed. Patient is counseled on taking adequate oral hydration. I explained to him that beer is not appropriate. Patient is tachycardic here in the emergency department but states he did not take his metoprolol today. He states he "just forgot". I advised that he take it when he gets home patient is asymptomatic. No chest pain or tightness. No shortness of breath. No palpitations. Upon leaving patient is requesting a place to stay. He does not have any power. I have explained to him that the shelters are still open and he is welcome to go to any of those he cannot stay here in the emergency department tonight. He verbalizes understanding and agrees to return immediately with any acute worsening of symptoms. Diagnosis Primary Impression: Decreased urine output Additional Impressions: Noncompliance with medication regimen Tachycardia Alcohol dependence Qualified Codes: F10.20 - Alcohol dependence, uncomplicated Referrals: Primary Care Physician Urologist Patient Instructions: General Instructions, Urinary Retention in Men (ED) Additional Instructions: Maintain adequate oral hydration with water or Gatorade or liquid other than alcohol Seek urology evaluation Return immediately to the emergency department with any acute worsening of symptoms Med/Other Pt SpecificInfo: No Change to Meds Disposition: 01 DISCHARGE HOME Condition: Stable Denae Mckeon Jan 31, 2017 21:20
== END 2017-01-31 22:11 | disposition home or self-care (01) ==
LOC: EDTENT 20:10
DX: R39.198 Other difficulties with micturition (principal); R00.0 Tachycardia, unspecified; F10.20 Alcohol dependence, uncomplicated; I10 Essential (primary) hypertension; Z72.0 Tobacco use; Z91.14 Patient's other noncompliance with medication regimen; Z79.899 Other long term (current) drug therapy; Z88.5 Allergy status to narcotic agent; Z88.6 Allergy status to analgesic agent
CPT/HCPCS: 51702

== ENCOUNTER 2017-02-02 09:19 | Emergency (ER) | payer SELFPAY ==
[~2017-02-02] VITALS: Ht 180.3 cm; Wt 60.0 kg
[2017-02-02 09:34] VITALS: BP 131/81; PULSE 115; RESP 18; TEMP 97; O2SAT 98
[2017-02-02] MEDS ORDERED: TAMS5CAP PO (10:42)
--- NOTE | 2017-02-02 10:42 | PD ---
HPI Chief Complaint: Complaint Time Seen by Provider: 10:32 Travel History International Travel<30 days: No Contact w/Intl Traveler<30days: No Traveled to known affect area: No History of Present Illness HPI This is a 61-year-old male with a history of alcoholism who presents to the emergency department having been unable to void for the past 12 hours he says he has severe suprapubic pain, constant, moderate severity. He denies any fevers or chills. He says he's had problems with his prostate before and he plans to follow up with urology on Tuesday. He admits to drinking alcohol every day. He's been seen for this is twice January 31. PFSH Past Medical History Hx Anticoagulant Therapy: No Heart Rhythm Problems: Yes Cardiovascular Problems: No Chemotherapy: No Cerebrovascular Accident: No Diabetes: No Gastrointestinal Disorders: Yes Genitourinary: No Hypertension: Yes Musculoskeletal: No Neurologic: No Reproductive: No Respiratory: No Influenza Vaccination: No Past Surgical History Abdominal Surgery: Yes (HERNIA REPAIR X 4) Hysterectomy: No Other Surgery: Yes ("a bunch of hernia surgeries" ) Social History Alcohol Use: Yes ("A COUPLE BEERS DAILY") Tobacco Use: Yes (4-5 CIGS/DAY) Substance Use: No (denies, however +marijuana drug screen) Allergies-Medications (Allergen,Severity, Reaction): Coded Allergies: acetaminophen (Unverified Adverse Reaction, Intermediate, Hallucinations, 02/02/17) pt stated happened last time he took med 20 years ago hydrocodone (Unverified Adverse Reaction, Intermediate, Hallucinations, ) pt stated happened last time he took med, 20 years ago. oxycodone (Unverified Adverse Reaction, Intermediate, Hallucinations, 02/02) pt stated happened last time he took med 20 years ago Reported Meds & Prescriptions Reported Meds & Active Scripts Active Cane with Strap/Black (Device) 1 Mis Mis 1 Ea .ROUTE DIRECTED Reported Lisinopril 20 Mg Tab 25 Mg PO DAILY Norvasc (Amlodipine Besylate) 5 Mg Tab 5 Mg PO DAILY Review of Systems Except as stated in HPI: all other systems reviewed are Neg Physical Exam Narrative GENERAL: Disheveled, older appearing than stated age SKIN: Focused skin assessment warm and dry. HEAD: Atraumatic. Normocephalic. EYES: Pupils equal and round. No injection or drainage. ENT: Moist mucous membranes NECK: Trachea midline. CARDIOVASCULAR: Regular rate and rhythm. No murmur appreciated. RESPIRATORY: Clear to auscultation. Breath sounds equal bilaterally. GASTROINTESTINAL: Abdomen soft, tender to palpation in the suprapubic region with no rebound or guarding. MUSCULOSKELETAL: No obvious deformities. NEUROLOGICAL: Awake and alert. No obvious cranial nerve deficits. Moving all extremities. PSYCHIATRIC: Appropriate mood and affect; insight and judgment normal. Data Data Last Documented VS Vital Signs Date Time Temp Pulse Resp B/P (MAP) Pulse Ox O2 Delivery O2 Flow Rate FiO2 02/02/17 09:34 97.0 115 18 131/81 (98) 98 Orders Orders Urinary Catheter Management NATTY.Q8H (02/02/17 10:32) [facility] Medical Decision Making Medical Screen Exam Complete: Yes Emergency Medical Condition: Yes Differential Diagnosis Acute urinary retention Narrative Course This is a 61-year-old male presents to the emergency department with acute urinary retention. A Leger catheter was placed and 500 cc of urine drained. He says he feels much better. I offered to leave the Leger catheter in and he declined. He says this can follow-up with urology on Tuesday. He'll be started on Flomax. I suspect his tachycardia is in the setting of early alcohol withdrawal. Diagnosis Primary Impression: Acute urinary retention Patient Instructions: General Instructions Additional Instructions: If you develop fever, chills, severe abdominal pain or inability to urinate return to the emergency room. Med/Other Pt SpecificInfo: Prescription(s) given Scripts Tamsulosin (Flomax) 0.4 Mg Cap 0.4 MG PO HS for Manage Prostate Problems, #30 CAP 0 Refills Prov: Shu Leung MD 02/02/17 Disposition: 01 DISCHARGE HOME Condition: Stable Shu Leung MD Feb 02, 2017 10:42
== END 2017-02-02 11:04 | disposition home or self-care (01) ==
LOC: NEPD 09:19
DX: R33.9 Retention of urine, unspecified (principal)
CPT/HCPCS: 51702

== ENCOUNTER 2017-02-17 16:45 | Emergency (ER) | payer SELFPAY ==
[~2017-02-17 16:45] MED LIST changes: -METO25TA3 PO; -MSIR15 PO; -PRED10 PO; +TAMS5CAP PO
[2017-02-17 17:00] VITALS: BP 100/56; PULSE 102; RESP 16; TEMP 98.6; O2SAT 96
[2017-02-18] MEDS ORDERED: METO25TA3 PO (11:07)
[2017-02-18] MEDS ORDERED: CEPH-460 PO (20:36)
== END 2017-02-17 19:55 | disposition left against medical advice (07) ==
LOC: NEDAMB 16:45
DX: R20.8 Other disturbances of skin sensation (principal); R53.1 Weakness; K59.00 Constipation, unspecified; Z53.21 Procedure and treatment not carried out due to patient leaving prior to being seen by health care provider
CPT/HCPCS: 99281

== ENCOUNTER 2017-02-18 10:47 | Emergency (ER) | payer SELFPAY ==
[~2017-02-18] VITALS: Ht 177.8 cm; Wt 59.0 kg
[2017-02-18 10:59] VITALS: BP 107/71; PULSE 102; RESP 20; O2SAT 97
[2017-02-18 11:02] VITALS: BP 107/71; PULSE 102; RESP 20; O2SAT 97
[2017-02-18] MEDS ORDERED: METO25TA3 PO (11:07)
--- NOTE | 2017-02-18 11:18 | PD ---
HPI Chief Complaint: Alcohol/Drug Intoxication Time Seen by Provider: 10:55 Travel History International Travel<30 days: No Contact w/Intl Traveler<30days: No Traveled to known affect area: No History of Present Illness HPI 61 yo M arrives to the ER via EMS. He experienced a mechanical fall at his house this morning and states he was unable to stand up. The patient is ambulatory. He walked into the ED yesterday and left AMA after 3 hours. He drank alcohol today as he does every day, rum and coke and beer. Locational generalized. Severity moderate. PFSH Past Medical History Hx Anticoagulant Therapy: No Heart Rhythm Problems: Yes Cardiovascular Problems: Yes (HTN) Chemotherapy: No Cerebrovascular Accident: No Diabetes: No Gastrointestinal Disorders: Yes Genitourinary: No Hypertension: Yes Musculoskeletal: No Neurologic: No Reproductive: No Respiratory: No Past Surgical History Abdominal Surgery: Yes (HERNIA REPAIR X 4) Hysterectomy: No Other Surgery: Yes ("a bunch of hernia surgeries" ) Social History Alcohol Use: Yes (DAILY ) Tobacco Use: Yes (4-5 CIGS/DAY) Substance Use: No (denies, however +marijuana drug screen) Allergies-Medications (Allergen,Severity, Reaction): Coded Allergies: acetaminophen (Unverified Adverse Reaction, Intermediate, Hallucinations, 02/18/17) pt stated happened last time he took med 20 years ago hydrocodone (Unverified Adverse Reaction, Intermediate, Hallucinations, ) pt stated happened last time he took med, 20 years ago. oxycodone (Unverified Adverse Reaction, Intermediate, Hallucinations, 02/18) pt stated happened last time he took med 20 years ago Reported Meds & Prescriptions Reported Meds & Active Scripts Active Flomax (Tamsulosin HCl) 0.4 Mg Cap 0.4 Mg PO HS Cane with Strap/Black (Device) 1 Mis Mis 1 Ea .ROUTE DIRECTED Reported Metoprolol Tartrate 25 Mg Tab 25 Mg PO DAILY Norvasc (Amlodipine Besylate) 5 Mg Tab 5 Mg PO DAILY Review of Systems Except as stated in HPI: all other systems reviewed are Neg General / Constitutional: No: Fever Cardiovascular: No: Chest Pain or Discomfort Respiratory: No: Shortness of Breath Physical Exam Narrative GENERAL: 61 yo M, WNWD, NAD SKIN: Warm and dry. Dried/healing abrasion about nose. HEAD: Atraumatic. Normocephalic. EYES: Pupils equal and round. No scleral icterus. No injection or drainage. ENT: No nasal bleeding or discharge. Mucous membranes pink and moist. NECK: Trachea midline. No JVD. CARDIOVASCULAR: Regular rate and rhythm. : Leger to leg bag present. Clear yellow urine in leg bag. RESPIRATORY: No accessory muscle use. Clear to auscultation. Breath sounds equal bilaterally. GASTROINTESTINAL: Abdomen soft, non-tender, nondistended. Hepatic and splenic margins not palpable. MUSCULOSKELETAL: Extremities without clubbing, cyanosis, or edema. No obvious deformities. NEUROLOGICAL: Awake and alert. No obvious cranial nerve deficits. Motor grossly within normal limits. Five out of 5 muscle strength in the arms and legs. Normal speech. PSYCHIATRIC: No HI/SI. Appropriate seasonal attire. Data Data Last Documented VS Vital Signs Date Time Temp Pulse Resp B/P (MAP) Pulse Ox O2 Delivery O2 Flow Rate FiO2 02/18/17 11:02 102 20 107/71 (83) 97 02/18/17 10:59 Room Air VS reviewed; RN reports temp to be 97.6 MDM Medical Decision Making Medical Screen Exam Complete: Yes Emergency Medical Condition: Yes Medical Record Reviewed: Yes Differential Diagnosis EtOH intoxication, malingering, alcoholism, falls Narrative Course The patient is intoxicated with alcohol. The patient is ambulatory. There is no acute medical condition for the nature of today's visit. The patient may be discharge home. He states his friend will come pick him up. Alternatively, the patient can be sent home via bus or cab voucher. Diagnosis Primary Impression: Alcoholism Referrals: [facility] 2 days Additional Instructions: You have a choice when it comes to health care, and we are glad that you chose [facility]. Hopefully, we have met your expectations on today's visit. You are welcome to return to [facility] at any time, as we are committed to meeting the health care needs of our community. Med/Other Pt SpecificInfo: No Change to Meds Disposition: 01 DISCHARGE HOME Condition: Stable Roland Harrison MD Feb 18, 2017 11:18
[2017-02-18] MEDS ORDERED: CEPH-460 PO (20:36)
== END 2017-02-18 16:55 | disposition home or self-care (01) ==
LOC: NEPD 10:47 → NEDAMB 16:55
DX: F10.20 Alcohol dependence, uncomplicated (principal); I10 Essential (primary) hypertension; F17.210 Nicotine dependence, cigarettes, uncomplicated; Z79.899 Other long term (current) drug therapy; Z88.6 Allergy status to analgesic agent; Z88.5 Allergy status to narcotic agent
CPT/HCPCS: 99283

== ENCOUNTER 2017-02-18 16:51 | Emergency (ER) | payer SELFPAY ==
[~2017-02-18] VITALS: Ht 177.8 cm; Wt 59.0 kg
[~2017-02-18 16:51] MED LIST changes: +METO25TA3 PO
[2017-02-18 17:13] VITALS: BP 176/85; PULSE 120; RESP 16; TEMP 98.2; O2SAT 98
[2017-02-18] MEDS ORDERED: SODIUM CHLORIDE 0.9% FLUSH 10 ML FLUSH IV FLUSH PRN (17:45)
[2017-02-18] MEDS ORDERED: LORazepam 0.5 MG TAB PO ONE (17:45)
--- NOTE | 2017-02-18 17:45 | PD ---
HPI Chief Complaint: GI Complaint Time Seen by Provider: 17:16 Travel History International Travel<30 days: No Contact w/Intl Traveler<30days: No Traveled to known affect area: No History of Present Illness HPI Patient 61-year-old male presents to the emergency department for evaluation of generalized weakness and urinary retention. The patient was here on February 02 and had a Leger catheter placed. He apparently presented again on the but there is no documentation from that visit so I presume he left without being seen. Patient was actually seen earlier today by Dr. Harrison as diagnosed as chronic alcoholic and referred to [facility]. He states since discharge she's been unable to function at home barely able to walk. He states that he does have a indwelling Leger catheter for the past 2 weeks which has not been evaluated by urologist as of yet because they continue to postpone his appointment. He states she's not had a drink today and needs "a shot for that". He states his symptoms of all been going on for longer than a week. Gradually worsening. Generalized. PFSH Past Medical History Hx Anticoagulant Therapy: No Heart Rhythm Problems: Yes Cardiovascular Problems: Yes (HTN) Chemotherapy: No Cerebrovascular Accident: No Diabetes: No Gastrointestinal Disorders: Yes Genitourinary: No Hypertension: Yes Musculoskeletal: No Neurologic: No Reproductive: No Respiratory: No Past Surgical History Abdominal Surgery: Yes (HERNIA REPAIR X 4) Hysterectomy: No Other Surgery: Yes ("a bunch of hernia surgeries" ) Social History Alcohol Use: Yes (DAILY ) Tobacco Use: Yes (4-5 CIGS/DAY) Substance Use: No (denies, however +marijuana drug screen) Allergies-Medications (Allergen,Severity, Reaction): Coded Allergies: acetaminophen (Unverified Adverse Reaction, Intermediate, Hallucinations, 02/18/17) pt stated happened last time he took med 20 years ago hydrocodone (Unverified Adverse Reaction, Intermediate, Hallucinations, ) pt stated happened last time he took med, 20 years ago. oxycodone (Unverified Adverse Reaction, Intermediate, Hallucinations, 02/18) pt stated happened last time he took med 20 years ago Reported Meds & Prescriptions Reported Meds & Active Scripts Active Keflex (Cephalexin) 500 Mg Cap 500 Mg PO Q6H 7 Days Flomax (Tamsulosin HCl) 0.4 Mg Cap 0.4 Mg PO HS Cane with Strap/Black (Device) 1 Mis Mis 1 Ea .ROUTE DIRECTED Reported Metoprolol Tartrate 25 Mg Tab 25 Mg PO DAILY Norvasc (Amlodipine Besylate) 5 Mg Tab 5 Mg PO DAILY Review of Systems Except as stated in HPI: all other systems reviewed are Neg Physical Exam Narrative GENERAL: Well-developed well-nourished no obvious distress, mild tremor. SKIN: Focused skin assessment warm/dry. HEAD: Atraumatic. Normocephalic. EYES: Pupils equal and round. No scleral icterus. No injection or drainage. ENT: No nasal bleeding or discharge. Mucous membranes pink and moist. NECK: Trachea midline. No JVD. CARDIOVASCULAR: Regular rate and rhythm. No murmur appreciated. RESPIRATORY: No accessory muscle use. Clear to auscultation. Breath sounds equal bilaterally. GASTROINTESTINAL: Abdomen soft, non-tender, nondistended. Hepatic and splenic margins not palpable. GENITOURINARY: Leger catheter in place with cloudy urine. MUSCULOSKELETAL: No obvious deformities. No clubbing. No cyanosis. No edema. NEUROLOGICAL: Awake and alert and oriented. Mild tremor. No obvious cranial nerve deficits. Motor grossly within normal limits. Normal speech. Cognitively intact. PSYCHIATRIC: Appropriate mood and affect; insight and judgment normal. Data Data Last Documented VS Vital Signs Date Time Temp Pulse Resp B/P (MAP) Pulse Ox O2 Delivery O2 Flow Rate FiO2 02/18/17 21:56 02/18/17 19:43 117 Room Air 02/18/17 18:15 16 100 02/18/17 17:13 98.2 Orders Orders Complete Blood Count With Diff (02/18/17 17:42) Comprehensive Metabolic Panel (02/18/17 17:42) Urinalysis - C+S If Indicated (02/18/17 17:42) Iv Access Insert/Monitor (02/18/17 17:42) Ecg Monitoring (02/18/17 17:42) Oximetry (02/18/17 17:42) Sodium Chloride 0.9% Flush (Ns Flush) (02/18/17 17:45) Lorazepam (Ativan) (02/18/17 17:45) Remove Urinary Catheter .ONCE (02/18/17 17:42) Sodium Chlor 0.9% 1000 Ml Inj (Ns 1000 M (02/18/17 19:00) Thiamine Inj (Thiamine Inj) (02/18/17 19:00) Urine Culture (02/18/17 17:45) Cephalexin (Keflex) (02/18/17 19:30) Polyethylene Glycol (Miralax) (02/18/17 19:30) Urinary Catheter Management NATTY.Q8H (02/18/17 20:39) Labs Laboratory Tests Test 02/18/17 17:45 White Blood Count 7.6 TH/MM3 Red Blood Count 3.22 MIL/MM3 Hemoglobin 11.1 GM/DL Hematocrit 33.0 % Mean Corpuscular Volume 102.5 FL Mean Corpuscular Hemoglobin 34.5 PG Mean Corpuscular Hemoglobin Concent 33.6 % Red Cell Distribution Width 17.9 % Platelet Count 217 TH/MM3 Mean Platelet Volume 8.7 FL Neutrophils (%) (Auto) 77.0 % Lymphocytes (%) (Auto) 9.9 % Monocytes (%) (Auto) 11.1 % Eosinophils (%) (Auto) 0.2 % Basophils (%) (Auto) 1.8 % Neutrophils # (Auto) 5.9 TH/MM3 Lymphocytes # (Auto) 0.8 TH/MM3 Monocytes # (Auto) 0.8 TH/MM3 Eosinophils # (Auto) 0.0 TH/MM3 Basophils # (Auto) 0.1 TH/MM3 CBC Comment DIFF FINAL Differential Comment Urine Color YELLOW Urine Turbidity HAZY Urine pH 5.5 Urine Specific [place] 1.016 Urine Protein 30 mg/dL Urine Glucose (UA) NEG mg/dL Urine Ketones 40 mg/dL Urine Occult Blood MOD Urine Nitrite POS Urine Bilirubin NEG Urine Urobilinogen LESS THAN 2.0 MG/DL Urine Leukocyte Esterase MOD Urine RBC /hpf Urine WBC 31 /hpf Urine Mucus FEW /lpf Microscopic Urinalysis Comment CULTURE INDICATED Blood Urea Nitrogen 13 MG/DL Creatinine 0.87 MG/DL Random Glucose 84 MG/DL Total Protein 6.6 GM/DL Albumin 2.8 GM/DL Calcium Level 7.6 MG/DL Alkaline Phosphatase 125 U/L Aspartate Amino Transf (AST/SGOT) 203 U/L Alanine Aminotransferase (ALT/SGPT) 144 U/L Total Bilirubin 0.3 MG/DL Sodium Level 138 MEQ/L Potassium Level 5.2 MEQ/L Chloride Level 106 MEQ/L Carbon Dioxide Level 20.3 MEQ/L Anion Gap 12 MEQ/L Estimat Glomerular Filtration Rate 89 ML/MIN MDM Medical Decision Making Medical Screen Exam Complete: Yes Emergency Medical Condition: Yes Differential Diagnosis Mild alcohol withdrawals, delirium tremens excluded clinically, electrolyte abnormality, dehydration, urinary retention, clogged Leger catheter. Narrative Course Patient roomed emergency department, mildly tremulous, was given Ativan 0.5 mg by mouth, normal saline, thiamine, urine catheter was flushed and does appear to be draining. We'll check some basic labs is his second presentation of the symptoms today. According to Dr. Harrison's note he did not mention these symptoms at all. Leger catheter was removed fresh urine sample obtained which does show nitrite positive urine. Patient was given a trial of voiding in the emergency department which she failed fully catheter was placed feeling 400 cc of urine. Will be placed on Keflex and initial dose given in the emergency department. Basic labs do not show Sirs criteria. He is mildly tachycardic which I attribute to some mild alcohol withdrawals. However there is no indication for inpatient workup of the withdrawals this time. He was referred to [facility] and discussed with him return to ED criteria. He is stable for discharge. Reinforced use of his Flomax which she was written a prescription for previously. Diagnosis Primary Impression: Urinary tract infection Qualified Codes: N30.00 - Acute cystitis without hematuria Additional Impression: Alcohol withdrawal Qualified Codes: F10.230 - Alcohol dependence with withdrawal, uncomplicated Scripts Cephalexin (Keflex) 500 Mg Cap 500 MG PO Q6H for Infection for 7 Days, #28 CAP 0 Refills Prov: Carlos Rico MD 02/18/17 Disposition: 01 DISCHARGE HOME Condition: Stable Carlos Rico MD Feb 18, 2017 17:45
[2017-02-18 18:09] VITALS: RESP 16; O2SAT 98
[2017-02-18 18:15] VITALS: BP 160/72; PULSE 108; RESP 16; O2SAT 100
[2017-02-18 18:25] LABS: AUTOMATED NEUTROPHIL # 5.9 TH/MM3 (1.8-7.7); BASOPHIL # 0.1 TH/MM3 (0-0.2); BASOPHIL % 1.8 % (0.0-2.0); EOSINOPHIL % 0.2 % (0.0-4.0); HEMO FLAGS DIFF FINAL; LYMPH % 9.9 % (9.0-44.0); LYMPHOCYTE # 0.8 TH/MM3 (1.0-4.8); MEAN CELL VOLUME 102.5 FL (80.0-100.0); MEAN CORPUSCULAR HEMOGLOBIN 34.5 PG (27.0-34.0); MEAN CORPUSCULAR HGB CONC 33.6 % (32.0-36.0); MONO % 11.1 % (0.0-8.0); PLATELET COUNT 217 TH/MM3 (150-450); RED BLOOD COUNT 3.22 MIL/MM3 (4.50-5.90); RED CELL DISTRIBUTION WIDTH 17.9 % (11.6-17.2); WHITE BLOOD COUNT 7.6 TH/MM3 (4.0-11.0)
[2017-02-18 18:36] LABS: BLOOD, URINE MOD (NEG); COMMENT (UR) CULTURE INDICATED; CULTURE IF INDICATED CULTURE INDICATED; GLUCOSE,URINE NEG (NEG); KETONE, URINE 40 mg/dL (NEG); MUCUS URINE FEW /lpf (OCC); NITRITE,URINE POS (NEG); PH, URINE 5.5 (5.0-8.5); URINE COLOR YELLOW (YELLW/STRAW)
[2017-02-18 18:41] LABS: ALT (GPT) 144 U/L (12-78)
[2017-02-18 18:43] LABS: ALKALINE PHOSPHATASE 125 U/L (45-117); TOTAL BILIRUBIN ADULT 0.3 MG/DL (0.2-1.0)
[2017-02-18 18:49] LABS: ANION GAP 12 MEQ/L (5-15); AST (GOT) 203 U/L (15-37); BICARBONATE 20.3 MEQ/L (21.0-32.0); BLOOD UREA NITROGEN 13 MG/DL (7-18); CHLORIDE 106 MEQ/L (98-107); GLOMERULAR FILTRATION RATE 89 ML/MIN (>89); POTASSIUM 5.2 MEQ/L (3.5-5.1); SODIUM (NA) 138 MEQ/L (136-145)
[2017-02-18] MEDS ORDERED: THIAMINE INJ 100 MG in SODIUM CHLORIDE 0.9% INJ 100 ML IV ONE (19:00)
[2017-02-18] MEDS ORDERED: SODIUM CHLOR 0.9% 1000 ML INJ 1,000 ML IV ONE (19:00)
[2017-02-18] MEDS ORDERED: CEPHALEXIN MONOHYDRATE 500 MG CAP PO ONE (19:30)
[2017-02-18] MEDS ORDERED: POLYETHYLENE GLYCOL 17 GM PKG PO ONE (19:30)
[2017-02-18 19:43] VITALS: BP 156/80; PULSE 117
[2017-02-18] MEDS ORDERED: CEPH-460 PO (20:36)
== END 2017-02-18 22:03 | disposition home or self-care (01) ==
LOC: NEPD 16:51
DX: N39.0 Urinary tract infection, site not specified (principal); A49.01 Methicillin susceptible Staphylococcus aureus infection, unspecified site; F10.239 Alcohol dependence with withdrawal, unspecified; R00.0 Tachycardia, unspecified; R53.1 Weakness; I10 Essential (primary) hypertension; F17.210 Nicotine dependence, cigarettes, uncomplicated; Z79.899 Other long term (current) drug therapy; Z88.6 Allergy status to analgesic agent
CPT/HCPCS: 51702; 80053; 81001; 85025; 86403; 87086; 87186; 96365; 99284; J3411; J7030

== ENCOUNTER 2017-02-19 14:20 | Inpatient (IN) | payer SELFPAY ==
[~2017-02-19] VITALS: Ht 180.3 cm; Wt 59.0 kg
[~2017-02-19 14:20] MED LIST changes: +CEPH-460 PO; -LISI-515 PO
[2017-02-19 14:28] VITALS: BP 139/76; PULSE 130; RESP 18; TEMP 98.6; O2SAT 99
--- NOTE | 2017-02-19 14:37 | PD ---
Physical Exam Date Seen by Provider: Feb 19, 2017 Time Seen by Provider: 14:32 Data Data Last Documented VS Vital Signs Date Time Temp Pulse Resp B/P (MAP) Pulse Ox O2 Delivery O2 Flow Rate FiO2 02/19/17 14:28 98.6 130 18 139/76 (97) 99 MDM Supervised Visit with KEON: No Narrative Course 61 YO M with complaint of constipation x one day. States last BM was small, yesterday. Patient endorses multiple other complaints. Tremulous on presentation, states last ETOH was yesterday morning. Vitals reviewed. Patient seen in triage, awaiting priority bed placement. Isis Sherman Feb 19, 2017 14:36
[2017-02-19] MEDS ORDERED: LORazepam 2 MG/ML VIAL IV PUSH ONE (15:15)
--- NOTE | 2017-02-19 15:24 | PD ---
HPI Chief Complaint: GI Complaint Time Seen by Provider: 15:01 Travel History International Travel<30 days: No Contact w/Intl Traveler<30days: No Traveled to known affect area: No History of Present Illness HPI This patient is a local alcoholic who called paramedics to bring him to the ER. He is feeling weak and shaky. He falls frequently. He has difficulty walking. He is an alcoholic who has not any alcohol in the last couple of days. He says he wanted to quit so just stop drinking. Denies drug use. No head injury. Symptoms severity is moderate. He was seen here in the ER twice yesterday. He was noted to be in withdrawal yesterday but not serious enough to hospitalize. Patient reports that he is worse. No alleviating factors. Symptoms exacerbated by lack of alcohol. Duration is 3 days, gradually worsening. PFSH Past Medical History Hx Anticoagulant Therapy: No Heart Rhythm Problems: Yes Cardiovascular Problems: Yes (HTN) Chemotherapy: No Cerebrovascular Accident: No Diabetes: No Diminished Hearing: No Gastrointestinal Disorders: Yes (CONSTIPATION) Genitourinary: Yes (URINARY RETENTION) Hypertension: Yes Musculoskeletal: No Neurologic: No Reproductive: No Respiratory: No Tetanus Vaccination: Unknown Past Surgical History Abdominal Surgery: Yes (HERNIA REPAIR X 4) Hysterectomy: No Other Surgery: Yes ("a bunch of hernia surgeries" ) Social History Alcohol Use: Yes (DAILY ) Tobacco Use: Yes (4-5 CIGS/DAY) Substance Use: No Allergies-Medications (Allergen,Severity, Reaction): Coded Allergies: acetaminophen (Unverified Adverse Reaction, Intermediate, Hallucinations, 02/18/17) pt stated happened last time he took med 20 years ago hydrocodone (Unverified Adverse Reaction, Intermediate, Hallucinations, ) pt stated happened last time he took med, 20 years ago. oxycodone (Unverified Adverse Reaction, Intermediate, Hallucinations, 02/18) pt stated happened last time he took med 20 years ago Reported Meds & Prescriptions Reported Meds & Active Scripts Active Keflex (Cephalexin) 500 Mg Cap 500 Mg PO Q6H 7 Days Flomax (Tamsulosin HCl) 0.4 Mg Cap 0.4 Mg PO HS Cane with Strap/Black (Device) 1 Mis Mis 1 Ea .ROUTE DIRECTED Reported Metoprolol Tartrate 25 Mg Tab 25 Mg PO DAILY Norvasc (Amlodipine Besylate) 5 Mg Tab 5 Mg PO DAILY Review of Systems General / Constitutional: No: Fever Eyes: No: Visual changes HENT: No: Headaches Cardiovascular: Positive: Tachycardia, No: Chest Pain or Discomfort Respiratory: No: Shortness of Breath Gastrointestinal: No: Abdominal Pain Genitourinary: No: Dysuria Musculoskeletal: Positive: Weakness, No: Pain Skin: No Rash Neurologic: Positive: Weakness, Tremor Psychiatric: Positive: Substance Abuse, No: Depression Endocrine: No: Polydipsia Hematologic/Lymphatic: No: Easy Bruising Physical Exam Narrative GENERAL: Thin disheveled well-developed patient with tremor and tachycardia and weakness. SKIN: Focused skin assessment reveals no rash and nodules. Skin is Warm and dry. Multiple extremity bruises HEAD: Atraumatic. Normocephalic. EYES: Pupils equal and round. No scleral icterus. No injection or drainage. ENT: No nasal bleeding or discharge. Mucous membranes pink and moist. NECK: Trachea midline. No JVD. CARDIOVASCULAR: Regular rate and rhythm. No murmur appreciated. Tachycardic 130 RESPIRATORY: No accessory muscle use. Clear to auscultation. Breath sounds equal bilaterally. GASTROINTESTINAL: Abdomen soft, non-tender, nondistended. Hepatic and splenic margins not palpable. MUSCULOSKELETAL: No obvious deformities. No clubbing. No cyanosis. No edema. NEUROLOGICAL: Awake and alert. No obvious cranial nerve deficits. Motor grossly within normal limits. Normal speech. Somewhat tremulous PSYCHIATRIC: Appropriate mood and affect; insight and judgment poor. : Has indwelling Leger to a leg bag Data Data Last Documented VS Vital Signs Date Time Temp Pulse Resp B/P (MAP) Pulse Ox O2 Delivery O2 Flow Rate FiO2 02/19/17 14:50 16 02/19/17 14:28 98.6 130 139/76 (97) 99 Orders Orders Iv Access Insert/Monitor (02/19/17 15:12) Complete Blood Count With Diff (02/19/17 15:12) Basic Metabolic Panel (Bmp) (02/19/17 15:12) Alcohol (Ethanol) (02/19/17 15:12) Territory Service Representative / Telemetry NATTY.Q8H (02/19/17 15:12) Electrocardiogram (02/19/17 ) Lorazepam Inj (Ativan Inj) (02/19/17 15:15) Sodium Chlor 0.9% 1000 Ml Inj (Ns 1000 M (02/19/17 15:30) Creatine Kinase (Cpk) (02/19/17 15:24) Admit Order (Ed Use Only) (02/19/17 16:43) Labs Laboratory Tests Test 02/19/17 15:20 White Blood Count 8.8 TH/MM3 Red Blood Count 3.33 MIL/MM3 Hemoglobin 11.4 GM/DL Hematocrit 33.5 % Mean Corpuscular Volume 100.6 FL Mean Corpuscular Hemoglobin 34.2 PG Mean Corpuscular Hemoglobin Concent 34.0 % Red Cell Distribution Width 17.9 % Platelet Count 168 TH/MM3 Mean Platelet Volume 7.4 FL Neutrophils (%) (Auto) 82.4 % Lymphocytes (%) (Auto) 3.8 % Monocytes (%) (Auto) 13.2 % Eosinophils (%) (Auto) 0.0 % Basophils (%) (Auto) 0.6 % Neutrophils # (Auto) 7.2 TH/MM3 Lymphocytes # (Auto) 0.3 TH/MM3 Monocytes # (Auto) 1.2 TH/MM3 Eosinophils # (Auto) 0.0 TH/MM3 Basophils # (Auto) 0.1 TH/MM3 CBC Comment DIFF FINAL Differential Comment Blood Urea Nitrogen 17 MG/DL Creatinine 1.00 MG/DL Random Glucose 91 MG/DL Calcium Level 8.7 MG/DL Sodium Level 136 MEQ/L Potassium Level 3.9 MEQ/L Chloride Level 103 MEQ/L Carbon Dioxide Level 25.3 MEQ/L Anion Gap 8 MEQ/L Estimat Glomerular Filtration Rate 76 ML/MIN Ethyl Alcohol Level LESS THAN 3 MG/DL MDM Medical Decision Making Medical Screen Exam Complete: Yes Emergency Medical Condition: Yes Medical Record Reviewed: Yes Differential Diagnosis Alcohol withdrawal, DTs, cardiac arrhythmia Narrative Course I have reviewed the patient's electronic medical record. Reviewed his visit from yesterday. IV placed CBC normal Metabolic profile reasonably normal Alcohol level is negative I gave him 1 mg IV Ativan Gave him 1 L normal saline IV bolus I reviewed his EKG shows sinus tachycardia without ectopy Extended cardiac monitoring shows sinus tachycardia generally in the 120s without ectopy Try to get him up and walk him but that was a miserable failure.. Patient seems to be in acute alcohol withdrawal. We called [facility] see if there are inpatient treatment beds but there are not any at this time. He is worse than yesterday and clearly failing as an outpatient. I've discussed the hospitalist would admit him for acute alcohol withdrawal monitoring and IV benzodiazepine therapy Diagnosis Primary Impression: Alcohol withdrawal syndrome Qualified Codes: F10.239 - Alcohol dependence with withdrawal, unspecified Admitting Information Admitting Physician Requests: Suman Thomas MD Feb 19, 2017 15:24
[2017-02-19] MEDS ORDERED: SODIUM CHLOR 0.9% 1000 ML INJ 1,000 ML IV ONE (15:30)
[2017-02-19 15:35] LABS: AUTOMATED NEUTROPHIL # 7.2 TH/MM3 (1.8-7.7); BASOPHIL # 0.1 TH/MM3 (0-0.2); BASOPHIL % 0.6 % (0.0-2.0); HEMATOCRIT 33.5 % (39.0-51.0); HEMO FLAGS DIFF FINAL; LYMPH % 3.8 % (9.0-44.0); LYMPHOCYTE # 0.3 TH/MM3 (1.0-4.8); MEAN CELL VOLUME 100.6 FL (80.0-100.0); MEAN CORPUSCULAR HEMOGLOBIN 34.2 PG (27.0-34.0); MONO % 13.2 % (0.0-8.0); NEUT % 82.4 % (16.0-70.0); PLATELET COUNT 168 TH/MM3 (150-450); RED BLOOD COUNT 3.33 MIL/MM3 (4.50-5.90); RED CELL DISTRIBUTION WIDTH 17.9 % (11.6-17.2); WHITE BLOOD COUNT 8.8 TH/MM3 (4.0-11.0)
[2017-02-19 15:45] VITALS: BP 142/80; PULSE 124; RESP 21; O2SAT 96
[2017-02-19 16:00] VITALS: BP 152/86; PULSE 118; RESP 20; O2SAT 100
[2017-02-19 16:06] LABS: ANION GAP 8 MEQ/L (5-15); BICARBONATE 25.3 MEQ/L (21.0-32.0); BLOOD UREA NITROGEN 17 MG/DL (7-18); CHLORIDE 103 MEQ/L (98-107); GLOMERULAR FILTRATION RATE 76 ML/MIN (>89); POTASSIUM 3.9 MEQ/L (3.5-5.1); SODIUM (NA) 136 MEQ/L (136-145)
[2017-02-19 16:08] LABS: ALCOHOL LESS THAN 3 MG/DL (0-5)
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
[2017-02-19] MEDS ORDERED: SODIUM CHLORIDE 0.9% FLUSH 10 ML FLUSH IV FLUSH PRN (17:30)
[2017-02-19] MEDS ORDERED: LORazepam 2 MG/ML VIAL IV PUSH PRN ×4 (17:30)
[2017-02-19] MEDS ORDERED: cloNIDine HCL 0.1 MG TAB PO PRN (17:30)
[2017-02-19] MEDS ORDERED: FLUMAZENIL 0.5 MG/5 ML VIAL IV PUSH PRN (17:30)
[2017-02-19] MEDS ORDERED: ONDANSETRON HCL 4 MG/2 ML VIAL IV PUSH PRN (17:30)
[2017-02-19 18:00] VITALS: BP 151/86; PULSE 114; RESP 23; O2SAT 100
[2017-02-19] MEDS ORDERED: MAGNESIUM HYDROXIDE SUSP 30 ML CUP PO PRN (18:00)
[2017-02-19] MEDS ORDERED: BISACODYL 10 MG SUPP RECTAL PRN (18:00)
[2017-02-19] MEDS ORDERED: SENNOSIDES 8.6 MG TAB PO PRN (18:00)
[2017-02-19] MEDS ORDERED: LACTULOSE SYRUP 20 GM/30 ML CUP PO PRN (18:00)
[2017-02-19] MEDS: THIAMINE HCL 100 MG TAB PO SCH (18:12)
[2017-02-19] MEDS: FOLIC ACID 1 MG TAB PO SCH (18:12)
[2017-02-19] MEDS: MULTIVITAMINS/MINERALS THERAPEUTIC TAB PO SCH (18:12)
[2017-02-19] MEDS: PANTOPRAZOLE SOD 40 MG DELAYED RELEASE TAB PO SCH (18:13)
[2017-02-19] MEDS: cefTRIAXone INJ 1,000 MG in SODIUM CHLORIDE 0.9% INJ 100 ML IV SCH (18:13)
[2017-02-19] MEDS: D5-1/2 NS + KCL 20 MEQ INJ 1,000 ML IV SCH (18:13)
[2017-02-19 20:12] VITALS: BP 149/82; PULSE 117; RESP 21; O2SAT 97
[2017-02-19] MEDS: SODIUM CHLORIDE 0.9% FLUSH 10 ML FLUSH IV FLUSH SCH (21:00)
[2017-02-19] MEDS: DOCUSATE SODIUM 50 MG/SENNA 8.6 MG TAB PO SCH (21:00)
[2017-02-19 21:51] VITALS: BP 138/84; PULSE 128; RESP 24; TEMP 97.4; O2SAT 98
[2017-02-19] MEDS: TAMSULOSIN HCL 0.4 MG CAP PO SCH (23:00)
[2017-02-19] MEDS: LORazepam 1 MG TAB PO PRN (23:11)
[2017-02-20] VITALS: BP 134/81; PULSE 119; PULSE 124; RESP 20; TEMP 97.1; O2SAT 97
[2017-02-20 00:12] LABS: CKMB 10.6 NG/ML (0.5-3.6)
--- NOTE | 2017-02-20 01:20 | EKG ---
Date Performed: 02/19/2017 Time Performed: 15:34:51 PTAGE: 61 years EKG: SINUS TACHYCARDIA ABNORMAL RHYTHM ECG PREVIOUS TRACING : 01/31/2017 11.21 No significant change from previous tracing noted. DOCTOR: Slade Duong Interpretating Date/Time 02/20/2017 01:19:05
[2017-02-20 04:00] VITALS: BP 137/82; PULSE 119; RESP 22; TEMP 97.3; O2SAT 96
[2017-02-20] MEDS: D5-1/2 NS + KCL 20 MEQ INJ 1,000 ML IV SCH ×3 (05:32→21:01)
[2017-02-20 07:54] LABS: AUTOMATED NEUTROPHIL # 6.9 TH/MM3 (1.8-7.7); BASOPHIL % 0.5 % (0.0-2.0); EOSINOPHIL # 0.1 TH/MM3 (0-0.4); HEMATOCRIT 28.4 % (39.0-51.0); HEMO FLAGS DIFF FINAL; LYMPH % 11.4 % (9.0-44.0); MEAN CELL VOLUME 101.2 FL (80.0-100.0); MEAN CORPUSCULAR HGB CONC 34.6 % (32.0-36.0); MONO % 10.4 % (0.0-8.0); NEUT % 76.7 % (16.0-70.0); PLATELET COUNT 142 TH/MM3 (150-450); RED BLOOD COUNT 2.81 MIL/MM3 (4.50-5.90); RED CELL DISTRIBUTION WIDTH 17.8 % (11.6-17.2)
[2017-02-20 08:00] VITALS: BP 131/73; PULSE 118; RESP 18; TEMP 97.8; O2SAT 92
[2017-02-20 08:31] LABS: ALKALINE PHOSPHATASE 109 U/L (45-117); ALT (GPT) 119 U/L (12-78); ANION GAP 6 MEQ/L (5-15); AST (GOT) 143 U/L (15-37); BICARBONATE 25.2 MEQ/L (21.0-32.0); BLOOD UREA NITROGEN 6 MG/DL (7-18); CHLORIDE 106 MEQ/L (98-107); GLOMERULAR FILTRATION RATE 145 ML/MIN (>89); POTASSIUM 3.5 MEQ/L (3.5-5.1); SODIUM (NA) 137 MEQ/L (136-145); TOTAL BILIRUBIN ADULT 0.7 MG/DL (0.2-1.0)
[2017-02-20] MEDS: FOLIC ACID 1 MG TAB PO SCH (08:48)
[2017-02-20] MEDS: MULTIVITAMINS/MINERALS THERAPEUTIC TAB PO SCH (08:48)
[2017-02-20] MEDS: PANTOPRAZOLE SOD 40 MG DELAYED RELEASE TAB PO SCH (08:48)
[2017-02-20] MEDS: METOPROLOL TARTRATE 25 MG TAB PO SCH (08:48)
[2017-02-20] MEDS: THIAMINE HCL 100 MG TAB PO SCH (08:48)
[2017-02-20] MEDS: SODIUM CHLORIDE 0.9% FLUSH 10 ML FLUSH IV FLUSH SCH ×2 (08:49→21:00)
[2017-02-20] MEDS: DOCUSATE SODIUM 50 MG/SENNA 8.6 MG TAB PO SCH ×2 (08:49→21:00)
[2017-02-20] MEDS: amLODIPine BESYLATE 5 MG TAB PO SCH (08:49)
--- NOTE | 2017-02-20 11:28 | HHI.PR ---
Subjective Remarks Patient reports is feeling better overall. He believes he is getting stronger and may be able to walk with the walker. Still shaky but improved. Objective Vitals Vital Signs Date Time Temp Pulse Resp B/P (MAP) Pulse Ox O2 Delivery O2 Flow Rate FiO2 02/20/17 08:00 97.8 118 18 131/73 (92) 92 02/20/17 04:00 97.3 119 22 137/82 (100) 96 02/20/17 00:00 97.1 124 20 134/81 (98) 97 02/20/17 00:00 119 02/19/17 21:51 97.4 128 24 138/84 (102) 98 02/19/17 21:09 02/19/17 20:13 21 02/19/17 20:12 117 21 149/82 (104) 97 Room Air 02/19/17 18:00 114 23 151/86 (107) 100 Room Air 02/19/17 16:00 118 20 152/86 (108) 100 Room Air 02/19/17 15:45 124 21 142/80 (100) 96 Room Air 02/19/17 14:50 16 02/19/17 14:28 98.6 130 18 139/76 (97) 99 I/O 02/19/17 02/19/17 02/19/17 02/20/17 02/20/17 02/20/17 07:00 15:00 23:00 07:00 15:00 23:00 Intake Total 1240 ml Output Total 800 ml Balance 440 ml Intake Oral 240 ml IV Total 1000 ml Output Urine Total 800 ml # Bowel Movements 2 Result Diagram: 02/20/1772902/20/17729 Objective Remarks GENERAL: Disheveled male, frail, in no apparent distress. CARDIOVASCULAR: Normal rate and regular rhythm without murmurs, gallops, or rubs. RESPIRATORY: Good respiratory efforts. Breath sounds equal and clear to auscultation bilaterally. GASTROINTESTINAL: Abdomen soft, non-tender, non-distended. Normal active bowel sounds MUSCULOSKELETAL: Extremities without cyanosis, or edema. NEURO: Alert & Oriented x4 to person, place, time, situation. Moves all ext x4. Tremulous PSYCH: Appropriate mood and affect. A/P Problem List: (1) HTN (hypertension) ICD Code: I10 - Essential (primary) hypertension Status: Chronic (2) Constipation ICD Code: K59.00 - Constipation, unspecified Status: Acute (3) UTI (urinary tract infection) ICD Code: N39.0 - Urinary tract infection, site not specified Status: Acute (4) Balance problem ICD Code: R26.89 - Other abnormalities of gait and mobility Status: Acute (5) Alcohol withdrawal syndrome ICD Code: F10.239 - Alcohol dependence with withdrawal, unspecified Status: Acute Assessment and Plan 61-year-old male with primary medical history of EtOH abuse, hypertension, urinary retention who came into the hospital for evaluation of generalized weakness, constipation, shakiness from drinking alcohol. Alcohol Withdrawal, improving Transaminitis - related to ETOH abuse Tachycardia Macrocytic Anemia - related to ETOH - [facility] protocol - IVF for hydration D51/2 NS with 20MEQ K - Folic Acid, Multivit and Thiamine supplements - Pantoprazole 40mg - Seizure precaution. Neuro checks. - Trend LFTs - Spoke with family, daughter - discuss extensively patient condition and plan of treatment. He may benefit with Detox facility for Rehabilitation. CM will be consulted. Patient reports his roommate is also an alcoholic. Multiple falls RLE Edema Swallowing difficulty - ROM limited - PT eval and treat - ST eval and treat UTI BPH,Urinary Retention - Continue with indwelling Leger catheter for now. Patient states he has an appointment with urology next week. - Leger care - Ceftriaxone IV, Flomax HTN - Continue home medications metoprolol 25 mg daily, amlodipine 5 mg - Trend BP Constipation - Bowel regimen. MOM, senokot - Enema PRN - Monitor BM DVT Prop SCDs GI Pantoprazole Problem Qualifiers (1) Alcohol withdrawal syndrome: Qualified Codes: F10.239 - Alcohol dependence with withdrawal, unspecified Inocente Crawford MD Feb 20, 2017 11:28
[2017-02-20 12:00] VITALS: BP 129/78; PULSE 107; RESP 18; TEMP 99.3; O2SAT 95
[2017-02-20 16:00] VITALS: BP 139/81; PULSE 111; RESP 19; TEMP 99.1; O2SAT 95
[2017-02-20] MEDS: cefTRIAXone INJ 1,000 MG in SODIUM CHLORIDE 0.9% INJ 100 ML IV SCH (17:29)
[2017-02-20 20:00] VITALS: BP 136/70; PULSE 124; RESP 22; TEMP 97.1; O2SAT 96
[2017-02-20] MEDS: BENZONATATE 100 MG CAP PO PRN (20:59)
[2017-02-20] MEDS: TAMSULOSIN HCL 0.4 MG CAP PO SCH (20:59)
[2017-02-21] VITALS: BP 120/57; PULSE 126; RESP 22; TEMP 96.8; O2SAT 95
[2017-02-21 04:00] VITALS: BP 134/77; PULSE 109; RESP 22; TEMP 97.2; O2SAT 97
[2017-02-21 08:00] VITALS: BP 141/89; PULSE 102; RESP 20; TEMP 98; O2SAT 96
[2017-02-21] MEDS: DOCUSATE SODIUM 50 MG/SENNA 8.6 MG TAB PO SCH ×2 (09:00→21:00)
[2017-02-21] MEDS: amLODIPine BESYLATE 5 MG TAB PO SCH (09:15)
[2017-02-21] MEDS: FOLIC ACID 1 MG TAB PO SCH (09:15)
[2017-02-21] MEDS: THIAMINE HCL 100 MG TAB PO SCH (09:15)
[2017-02-21] MEDS: MULTIVITAMINS/MINERALS THERAPEUTIC TAB PO SCH (09:16)
[2017-02-21] MEDS: METOPROLOL TARTRATE 25 MG TAB PO SCH (09:16)
[2017-02-21] MEDS: SODIUM CHLORIDE 0.9% FLUSH 10 ML FLUSH IV FLUSH SCH ×2 (09:16→21:00)
[2017-02-21] MEDS: PANTOPRAZOLE SOD 40 MG DELAYED RELEASE TAB PO SCH (09:16)
[2017-02-21] MEDS: D5-1/2 NS + KCL 20 MEQ INJ 1,000 ML IV SCH ×2 (09:17→21:02)
[2017-02-21 12:00] VITALS: BP 129/76; PULSE 100; RESP 22; TEMP 97.7; O2SAT 97
--- NOTE | 2017-02-21 12:08 | HHI.PR ---
Subjective Remarks States he feels awful today. More shaky, anxious, +nausea. Objective Vitals Vital Signs Date Time Temp Pulse Resp B/P (MAP) Pulse Ox O2 Delivery O2 Flow Rate FiO2 02/21/17 08:00 98.0 102 20 141/89 (106) 96 02/21/17 04:00 97.2 109 22 134/77 (96) 97 02/21/17 00:00 96.8 126 22 120/57 (78) 95 02/20/17 20:00 97.1 124 22 136/70 (92) 96 02/20/17 16:00 99.1 111 19 139/81 (100) 95 I/O 02/20/17 02/20/17 02/20/17 02/21/17 02/21/17 02/21/17 07:00 15:00 23:00 07:00 15:00 23:00 Intake Total 1240 ml 1260 ml 2720 ml Output Total 800 ml 1000 ml 1400 ml Balance 440 ml 260 ml 1320 ml Intake Oral 240 ml 960 ml 720 ml IV Total 1000 ml 300 ml 2000 ml Output Urine Total 800 ml 1000 ml 1400 ml # Bowel Movements 2 3 2 Result Diagram: 02/20/1730 02/20/17 0730 Objective Remarks GENERAL: Disheveled male, frail, in no apparent distress. CARDIOVASCULAR: Normal rate and regular rhythm without murmurs, gallops, or rubs. RESPIRATORY: Good respiratory efforts. Breath sounds equal and clear to auscultation bilaterally. GASTROINTESTINAL: Abdomen soft, non-tender, non-distended. Normal active bowel sounds MUSCULOSKELETAL: Extremities without cyanosis, or edema. NEURO: Alert & Oriented x4 to person, place, time, situation. Moves all ext x4. Tremulous PSYCH: Anxious. A/P Problem List: (1) HTN (hypertension) ICD Code: I10 - Essential (primary) hypertension Status: Chronic (2) Constipation ICD Code: K59.00 - Constipation, unspecified Status: Acute (3) UTI (urinary tract infection) ICD Code: N39.0 - Urinary tract infection, site not specified Status: Acute (4) Balance problem ICD Code: R26.89 - Other abnormalities of gait and mobility Status: Acute (5) Alcohol withdrawal syndrome ICD Code: F10.239 - Alcohol dependence with withdrawal, unspecified Status: Acute Assessment and Plan 61-year-old male with primary medical history of EtOH abuse, hypertension, urinary retention who came into the hospital for evaluation of generalized weakness, constipation, shakiness from drinking alcohol. Alcohol Withdrawal Transaminitis - related to ETOH abuse Tachycardia Macrocytic Anemia - related to ETOH - [facility] protocol. DW, he is showing more signs of withdrawals. Ativan will be given. - IVF for hydration D51/2 NS with 20MEQ K - Folic Acid, Multivit and Thiamine supplements - Pantoprazole 40mg - Seizure precaution. Neuro checks. - Patient plan to return home however he reports his roommate is also an alcoholic. Multiple falls - PT eval and treat - ST eval and treat UTI BPH,Urinary Retention - Continue with indwelling Leger catheter for now. Patient states he has an appointment with urology next week. - Leger care - Ceftriaxone IV, Flomax HTN - Continue home medications metoprolol 25 mg daily, amlodipine 5 mg - Trend BP Constipation - Bowel regimen. MOM, senokot - Enema PRN - Monitor BM DVT Prop SCDs GI Pantoprazole Problem Qualifiers (1) Alcohol withdrawal syndrome: Qualified Codes: F10.239 - Alcohol dependence with withdrawal, unspecified Inocente Crawford MD Feb 21, 2017 12:08
[2017-02-21] MEDS: LORazepam 1 MG TAB PO PRN ×3 (12:46→20:58)
[2017-02-21 16:00] VITALS: BP 150/80; PULSE 96; RESP 20; TEMP 98.2; O2SAT 97
[2017-02-21] MEDS: cefTRIAXone INJ 1,000 MG in SODIUM CHLORIDE 0.9% INJ 100 ML IV SCH (17:06)
[2017-02-21 20:00] VITALS: BP 149/89; PULSE 101; PULSE 96; RESP 20; TEMP 99.4; O2SAT 99
[2017-02-21] MEDS: TAMSULOSIN HCL 0.4 MG CAP PO SCH (20:58)
[2017-02-22] VITALS (8 sets, daily range): BP systolic 139–156; BP diastolic 60–94; PULSE 97–113; RESP 18–20; TEMP 96.1–98.1; O2SAT 95–99
[2017-02-22] MEDS: LORazepam 2 MG TAB PO PRN ×2 (00:38→04:27)
[2017-02-22] MEDS: D5-1/2 NS + KCL 20 MEQ INJ 1,000 ML IV SCH ×2 (04:30→15:41)
[2017-02-22 08:09] LABS: HEMATOCRIT 33.1 % (39.0-51.0); MEAN CELL VOLUME 102.1 FL (80.0-100.0); MEAN CORPUSCULAR HEMOGLOBIN 34.5 PG (27.0-34.0); MEAN CORPUSCULAR HGB CONC 33.8 % (32.0-36.0); PLATELET COUNT 196 TH/MM3 (150-450); RED BLOOD COUNT 3.24 MIL/MM3 (4.50-5.90); REVIEW FLAG FINAL; WHITE BLOOD COUNT 6.9 TH/MM3 (4.0-11.0)
[2017-02-22 08:31] LABS: BICARBONATE 24.7 MEQ/L (21.0-32.0); POTASSIUM 3.3 MEQ/L (3.5-5.1)
[2017-02-22] MEDS: DOCUSATE SODIUM 50 MG/SENNA 8.6 MG TAB PO SCH ×2 (09:00→20:38)
[2017-02-22] MEDS: SODIUM CHLORIDE 0.9% FLUSH 10 ML FLUSH IV FLUSH SCH ×2 (09:00→20:38)
[2017-02-22] MEDS: FOLIC ACID 1 MG TAB PO SCH (09:32)
[2017-02-22] MEDS: METOPROLOL TARTRATE 25 MG TAB PO SCH (09:32)
[2017-02-22] MEDS: THIAMINE HCL 100 MG TAB PO SCH (09:32)
[2017-02-22] MEDS: PANTOPRAZOLE SOD 40 MG DELAYED RELEASE TAB PO SCH (09:32)
[2017-02-22] MEDS: MULTIVITAMINS/MINERALS THERAPEUTIC TAB PO SCH (09:33)
[2017-02-22] MEDS: amLODIPine BESYLATE 5 MG TAB PO SCH (09:33)
[2017-02-22] MEDS: BENZONATATE 100 MG CAP PO PRN (11:12)
[2017-02-22] MEDS ORDERED: MENTHOL LOZENGE BUCCAL PRN (11:15)
[2017-02-22] MEDS: cefTRIAXone INJ 1,000 MG in SODIUM CHLORIDE 0.9% INJ 100 ML IV SCH (17:54)
--- NOTE | 2017-02-22 19:04 | HHI.PR ---
Subjective Remarks Follow-up for alcohol withdrawal and urinary retention. Patient stated that he was feeling better this morning. He stated that he was able to sleep with "whatever medication he gave me last night. Patient denied having any withdrawal symptoms this morning. He did report having a "slightly productive cough". He did endorse a sense of shortness of breath. He denied fever and malaise. Patient stated he did not allow nursing staff to remove urinary catheter yesterday as "I wasn't ready for that". No acute issues noted by patient. Patient denied fever/chills, nausea, vomiting, diarrhea, constipation, abdominal /chest pain. Bowel and bladder issues were denied. Per RN (Blossom) patient reported reported having been a multiyear smoker of cigarettes and has recently stopped smoking (since admission). Patient is otherwise without acute issues overnight or since start of shift. Objective Vitals Vital Signs Date Time Temp Pulse Resp B/P (MAP) Pulse Ox O2 Delivery O2 Flow Rate FiO2 02/22/17 16:00 97.5 113 18 139/86 (103) 96 02/22/17 12:00 98.1 99 20 144/60 (88) 99 02/22/17 08:00 97.2 105 18 155/94 (114) 96 02/22/17 04:00 96.1 99 18 156/82 (106) 96 02/22/17 00:00 97.8 106 18 153/79 (103) 95 02/21/17 20:00 96 02/21/17 20:00 99.4 101 20 149/89 (109) 99 I/O 02/21/17 02/21/17 02/21/17 02/22/17 02/22/17 02/22/17 07:00 15:00 23:00 07:00 15:00 23:00 Intake Total 2720 ml 1400 ml 1146 ml 1620 ml Output Total 1400 ml 4200 ml 1450 ml 850 ml Balance 1320 ml -2800 ml -304 ml 770 ml Intake Oral 720 ml 1400 ml 620 ml IV Total 2000 ml 1146 ml 1000 ml Output Urine Total 1400 ml 4200 ml 1450 ml 850 ml # Bowel Movements 2 1 3 Result Diagram: 02/22/17 0655 02/22/17 0655 Objective Remarks GENERAL: Patient encountered sitting in chair at bedside, NAD SKIN: Warm and dry. HEAD: Normocephalic. EYES: No scleral icterus. No injection or drainage. NECK: Supple, trachea midline. No lymphadenopathy. CARDIOVASCULAR: Regular rate and rhythm without murmurs, gallops, or rubs. RESPIRATORY: Breath sounds equal bilaterally with coarse rhonchi noted on exhalation.. No wheezes or crackles. No accessory muscle use. GASTROINTESTINAL: Abdomen soft, non-tender, nondistended. MUSCULOSKELETAL: No cyanosis, or edema. Tremor not apparent. PSYCHIATRIC: Appropriate mood and affect; insight and judgment normal. Patient was pleasant and cooperative. Medications and IVs Current Medications Medications (Trade) Dose Ordered Sig/Rigo Route Start Time Stop Time Status Last Admin (Norvasc) 5 mg DAILY PO 02/20/17 09:00 02/22/17 09:33 (Lopressor) 25 mg DAILY PO 02/20/17 09:00 02/22/17 09:32 (Flomax) 0.4 mg HS PO 02/19/17 21:00 02/21/17 20:58 Ceftriaxone Sodium 1000 mg/ Sodium Chloride 100 ml @ 200 mls/hr Q24H IV 02/19/17 18:00 02/22/17 17:54 (NS Flush) 2 ml UNSCH PRN IV FLUSH 02/19/17 17:30 02/19/17 18:13 (NS Flush) 2 ml BID IV FLUSH 02/19/17 21:00 02/21/17 09:16 Potassium Chloride/Dextrose/ Sod Cl 1,000 ml @ 100 mls/hr Q10H IV 02/19/17 18:00 02/22/17 15:41 (Folate) 1 mg DAILY PO 02/19/17 17:30 02/24/17 17:29 02/22/17 09:32 (Vitamin B1) 100 mg DAILY PO 02/19/17 17:30 02/22/17 09:32 (Theragran M Tab) 1 tab DAILY PO 02/19/17 17:30 02/24/17 17:29 02/22/17 09:33 (Zofran Inj) 4 mg Q6H PRN IV PUSH 02/19/17 17:30 02/20/17 17:27 (Protonix) 40 mg DAILY PO 02/19/17 18:00 02/22/17 09:32 (Catapres) 0.1 mg Q6H PRN PO 02/19/17 17:30 (Romazicon Inj) 0.2 mg Q1M PRN IV PUSH 02/19/17 17:30 (Ativan) 1 mg Q4H PRN PO 02/19/17 17:30 02/21/17 20:58 (Ativan Inj) 1 mg Q4H PRN IV PUSH 02/19/17 17:30 (Ativan) 2 mg Q2H PRN PO 02/19/17 17:30 02/22/17 04:27 (Ativan Inj) 2 mg Q2H PRN IV PUSH 02/19/17 17:30 (Ativan Inj) 2 mg Q1H PRN IV PUSH 02/19/17 17:30 (Ativan Inj) 2 mg Q15M PRN IV PUSH 02/19/17 17:30 (Pooja-Colace) 1 tab BID PO 02/19/17 21:00 (Milk Of Magnesia Liq) 30 ml Q12H PRN PO 02/19/17 18:00 (Senokot) 17.2 mg Q12H PRN PO 02/19/17 18:00 (Dulcolax Supp) 10 mg DAILY PRN RECTAL 02/19/17 18:00 (Lactulose Liq) 30 ml DAILY PRN PO 02/19/17 18:00 (Tessalon) 100 mg TID PRN PO 02/20/17 13:15 02/22/17 11:12 ([place] Mariela) 1 lozenge UNSCH PRN BUCCAL 02/22/17 11:15 (Duoneb Neb) 1 ampule Q6HR WHILE AWAKE NEB NEB 02/22/17 14:00 Urinary Catheter: Yes Assessment to: Remove A/P Problem List: (1) HTN (hypertension) ICD Code: I10 - Essential (primary) hypertension Status: Chronic (2) Constipation ICD Code: K59.00 - Constipation, unspecified Status: Acute (3) UTI (urinary tract infection) ICD Code: N39.0 - Urinary tract infection, site not specified Status: Acute (4) Balance problem ICD Code: R26.89 - Other abnormalities of gait and mobility Status: Acute (5) Alcohol withdrawal syndrome ICD Code: F10.239 - Alcohol dependence with withdrawal, unspecified Status: Acute Assessment and Plan Patient is a 61-year-old male with primary medical history of EtOH abuse, hypertension, urinary retention who came into the hospital for evaluation of generalized weakness, constipation, shakiness from not drinking alcohol. States that he has been drinking for more than 20 years, and has stopped drinking yesterday. States that his roommate has been giving him medications for DTs that he started to take the day before and yesterday. He hasn't been feeling well after. He also states that he doesn't know that once he started taking the medication not to mix it with alcohol. Reports tremors, weakness, multiple falls, dizziness. Denies any hallucinations. Denies any alcohol withdrawal seizures or any hospitalization related to alcohol withdrawals. Alcohol Withdrawal: CIWA score of 132 noted overnight. Patient received Ativan 2 mg 2 overnight. Total Ativan intake over the past 24 hours is 7 mg. Continue to monitor. Cough/Rhonchi: Breathing treatments ordered. Tessalon Perles. Throat lozenge. Urinary retention: Catheter debris removed today. Alcohol Withdrawal Transaminitis - related to ETOH abuse Tachycardia Macrocytic Anemia - related to ETOH - CIWA protocol. DW, he is showing more signs of withdrawals. Ativan will be given. - IVF for hydration D51/2 NS with 20MEQ K - Folic Acid, Multivit and Thiamine supplements - Pantoprazole 40mg - Seizure precaution. Neuro checks. - Patient plan to return home however he reports his roommate is also an alcoholic. Multiple falls - PT eval and treat - ST eval and treat UTI BPH,Urinary Retention - Continue with indwelling Leger catheter for now. Patient states he has an appointment with urology next week. - Leger care - Ceftriaxone IV, Flomax HTN - Continue home medications metoprolol 25 mg daily, amlodipine 5 mg - Trend BP Constipation - Bowel regimen. MOM, senokot - Enema PRN - Monitor BM DVT Prop SCDs GI Pantoprazole Case discussed with patient, RN, and Dr. Crawford Discharge Planning Per case management, patient to be discharged home. Problem Qualifiers (1) Alcohol withdrawal syndrome: Qualified Codes: F10.239 - Alcohol dependence with withdrawal, unspecified Raz Isaac Jr. Feb 22, 2017 19:04
[2017-02-22] MEDS: RESP: ALBUTEROL 2.5 MG/IPRATROPIUM 0.5 MG NEB (SCH) NEB (20:19)
[2017-02-22] MEDS: TAMSULOSIN HCL 0.4 MG CAP PO SCH (20:37)
[2017-02-22] MEDS ORDERED: diphenhydrAMINE HCL 50 MG CAP PO ONE (21:00)
[2017-02-23] VITALS (9 sets, daily range): BP systolic 127–156; BP diastolic 74–86; PULSE 94–115; RESP 17–18; TEMP 96.6–98.6; O2SAT 94–98
[2017-02-23] MEDS: D5-1/2 NS + KCL 20 MEQ INJ 1,000 ML IV SCH ×3 (03:24→20:35)
[2017-02-23] MEDS: DOCUSATE SODIUM 50 MG/SENNA 8.6 MG TAB PO SCH ×2 (09:00→20:35)
[2017-02-23] MEDS: RESP: ALBUTEROL 2.5 MG/IPRATROPIUM 0.5 MG NEB (SCH) NEB ×3 (09:22→19:50)
[2017-02-23] MEDS: THIAMINE HCL 100 MG TAB PO SCH (09:48)
[2017-02-23] MEDS: FOLIC ACID 1 MG TAB PO SCH (09:49)
[2017-02-23] MEDS: METOPROLOL TARTRATE 25 MG TAB PO SCH ×2 (09:49→20:35)
[2017-02-23] MEDS: PANTOPRAZOLE SOD 40 MG DELAYED RELEASE TAB PO SCH (09:50)
[2017-02-23] MEDS: amLODIPine BESYLATE 5 MG TAB PO SCH (09:50)
[2017-02-23] MEDS: MULTIVITAMINS/MINERALS THERAPEUTIC TAB PO SCH (09:50)
[2017-02-23] MEDS: SODIUM CHLORIDE 0.9% FLUSH 10 ML FLUSH IV FLUSH SCH ×2 (09:51→20:35)
--- NOTE | 2017-02-23 16:30 | HHI.PR ---
Subjective Remarks Follow-up for alcohol withdrawal and urinary retention. Pt stated he had difficulty falling asleep last night and was "able to get to sleep when I got a sleeping pill (Benadryl)". Pt noted feeling less anxious this morning but "I think I still have some shakes." Pt elaborated having had "shakes long before I started drinking." Pt stated "drinking actually makes my shakes better." Pt stated he was not planning on resuming drinking alcohol. He denied wanting to attend AA at this time "but I might if I think I need it in the future." Patient denied having any withdrawal symptoms this morning. Pt stated he had received a breathing treatment and was feeling better. Urinary catheter removed yesterday and pt stated he was able to urinate without difficulty. No acute issues noted by patient. Patient denied fever/chills, nausea, vomiting, diarrhea, constipation, abdominal /chest pain. Bowel and bladder issues were denied. Per RN (Rebekah) had no acute issues overnight or since start of shift. Objective Vitals Vital Signs Date Time Temp Pulse Resp B/P (MAP) Pulse Ox O2 Delivery O2 Flow Rate FiO2 02/23/17 13:57 95 02/23/17 12:00 97.5 101 18 128/80 (96) 96 02/23/17 08:00 115 02/23/17 08:00 96.8 107 17 133/74 (93) 95 02/23/17 04:00 96.7 107 18 144/76 (98) 98 02/23/17 00:00 96.6 111 18 156/86 (109) 98 02/22/17 21:26 98 02/22/17 20:00 96.7 107 18 154/86 (108) 99 02/22/17 19:32 97 I/O 02/22/17 02/22/17 02/22/17 02/23/17 02/23/17 02/23/17 07:00 15:00 23:00 07:00 15:00 23:00 Intake Total 1146 ml 1720 ml 442 ml Output Total 1450 ml 2050 ml 200 ml Balance -304 ml -330 ml 242 ml Intake Oral 620 ml IV Total 1146 ml 1100 ml 442 ml Output Urine Total 1450 ml 2050 ml 200 ml # Bowel Movements 3 Result Diagram: 02/22/17 0655 02/22/17 0655 Objective Remarks GENERAL: Patient encountered laying in bed getting a breathing treatment, NAD SKIN: Warm and dry. HEAD: Normocephalic. EYES: No scleral icterus. No injection or drainage. NECK: Supple, trachea midline. No lymphadenopathy. CARDIOVASCULAR: Regular rate and rhythm without murmurs, gallops, or rubs. RESPIRATORY: Breath sounds equal reduced bilaterally. No wheezes, rhonchi, or crackles. No accessory muscle use. GASTROINTESTINAL: Abdomen soft, non-tender, nondistended. MUSCULOSKELETAL: No cyanosis, or edema. Tremor not apparent. PSYCHIATRIC: Appropriate mood and affect; insight and judgment normal. Patient was pleasant and cooperative. Medications and IVs Current Medications Medications (Trade) Dose Ordered Sig/Rigo Route Start Time Stop Time Status Last Admin (Norvasc) 5 mg DAILY PO 02/20/17 09:00 02/23/17 09:50 (Flomax) 0.4 mg HS PO 02/19/17 21:00 02/22/17 20:37 Ceftriaxone Sodium 1000 mg/ Sodium Chloride 100 ml @ 200 mls/hr Q24H IV 02/19/17 18:00 02/22/17 17:54 (NS Flush) 2 ml UNSCH PRN IV FLUSH 02/19/17 17:30 02/19/17 18:13 (NS Flush) 2 ml BID IV FLUSH 02/19/17 21:00 02/23/17 09:51 Potassium Chloride/Dextrose/ Sod Cl 1,000 ml @ 100 mls/hr Q10H IV 02/19/17 18:00 02/23/17 13:23 (Folate) 1 mg DAILY PO 02/19/17 17:30 02/24/17 17:29 02/23/17 09:49 (Vitamin B1) 100 mg DAILY PO 02/19/17 17:30 02/23/17 09:48 (Theragran M Tab) 1 tab DAILY PO 02/19/17 17:30 02/24/17 17:29 02/23/17 09:50 (Zofran Inj) 4 mg Q6H PRN IV PUSH 02/19/17 17:30 02/20/17 17:27 (Protonix) 40 mg DAILY PO 02/19/17 18:00 02/23/17 09:50 (Catapres) 0.1 mg Q6H PRN PO 02/19/17 17:30 (Romazicon Inj) 0.2 mg Q1M PRN IV PUSH 02/19/17 17:30 (Ativan) 1 mg Q4H PRN PO 02/19/17 17:30 02/21/17 20:58 (Ativan Inj) 1 mg Q4H PRN IV PUSH 02/19/17 17:30 (Ativan) 2 mg Q2H PRN PO 02/19/17 17:30 02/22/17 04:27 (Ativan Inj) 2 mg Q2H PRN IV PUSH 02/19/17 17:30 (Ativan Inj) 2 mg Q1H PRN IV PUSH 02/19/17 17:30 (Ativan Inj) 2 mg Q15M PRN IV PUSH 02/19/17 17:30 (Pooja-Colace) 1 tab BID PO 02/19/17 21:00 (Milk Of Magnesia Liq) 30 ml Q12H PRN PO 02/19/17 18:00 (Senokot) 17.2 mg Q12H PRN PO 02/19/17 18:00 (Dulcolax Supp) 10 mg DAILY PRN RECTAL 02/19/17 18:00 (Lactulose Liq) 30 ml DAILY PRN PO 02/19/17 18:00 (Tessalon) 100 mg TID PRN PO 02/20/17 13:15 02/22/17 11:12 ([place] Mariela) 1 lozenge UNSCH PRN BUCCAL 02/22/17 11:15 (Duoneb Neb) 1 ampule Q6HR WHILE AWAKE NEB NEB 02/22/17 14:00 02/23/17 13:55 (Lopressor) 25 mg Q12HR PO 02/23/17 21:00 Urinary Catheter: No A/P Problem List: (1) HTN (hypertension) ICD Code: I10 - Essential (primary) hypertension Status: Chronic (2) Constipation ICD Code: K59.00 - Constipation, unspecified Status: Acute (3) UTI (urinary tract infection) ICD Code: N39.0 - Urinary tract infection, site not specified Status: Acute (4) Balance problem ICD Code: R26.89 - Other abnormalities of gait and mobility Status: Acute (5) Alcohol withdrawal syndrome ICD Code: F10.239 - Alcohol dependence with withdrawal, unspecified Status: Acute Assessment and Plan Patient is a 61-year-old male with primary medical history of EtOH abuse, hypertension, urinary retention who came into the hospital for evaluation of generalized weakness, constipation, shakiness from not drinking alcohol. States that he has been drinking for more than 20 years, and has stopped drinking yesterday. States that his roommate has been giving him medications for DTs that he started to take the day before and yesterday. He hasn't been feeling well after. He also states that he doesn't know that once he started taking the medication not to mix it with alcohol. Reports tremors, weakness, multiple falls, dizziness. Denies any hallucinations. Denies any alcohol withdrawal seizures or any hospitalization related to alcohol withdrawals. Alcohol Withdrawal: range for past 24 hours 0-5. Patient received no Ativan in this time period. Cough/Rhonchi: Improved. Urinary retention: No issues noted after removal. Pt stabilizing and if continues current course will be discharged on 02/24/17. Pt informed of pending discharge. Alcohol Withdrawal Transaminitis - related to ETOH abuse Tachycardia Macrocytic Anemia - related to ETOH - CIWA protocol. DW, he is showing more signs of withdrawals. Ativan will be given. - IVF for hydration D51/2 NS with 20MEQ K - Folic Acid, Multivit and Thiamine supplements - Pantoprazole 40mg - Seizure precaution. Neuro checks. - Patient plan to return home however he reports his roommate is also an alcoholic. Multiple falls - PT eval and treat - ST eval and treat UTI BPH,Urinary Retention - Continue with indwelling Leegr catheter for now. Patient states he has an appointment with urology next week. - Leger care - Ceftriaxone IV, Flomax HTN - Continue home medications metoprolol 25 mg daily, amlodipine 5 mg - Trend BP Constipation - Bowel regimen. MOM, senokot - Enema PRN - Monitor BM DVT Prop SCDs GI Pantoprazole Case discussed with patient, RN, employment evaluator/case manager and Dr. Crawford Discharge Planning Per case management, patient to be discharged home. Problem Qualifiers (1) Alcohol withdrawal syndrome: Qualified Codes: F10.239 - Alcohol dependence with withdrawal, unspecified Raz Isaac Jr. Feb 23, 2017 16:30
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
[2017-02-23] MEDS: cefTRIAXone INJ 1,000 MG in SODIUM CHLORIDE 0.9% INJ 100 ML IV SCH (18:08)
[2017-02-23] MEDS: TAMSULOSIN HCL 0.4 MG CAP PO SCH (20:34)
[2017-02-23] MEDS: LORazepam 1 MG TAB PO PRN (20:34)
[2017-02-24 00:45] VITALS: BP 128/80; PULSE 104; RESP 18; TEMP 98.1; O2SAT 94
[2017-02-24 08:00] VITALS: BP 149/82; PULSE 106; RESP 18; TEMP 97.2; O2SAT 98
[2017-02-24] MEDS: RESP: ALBUTEROL 2.5 MG/IPRATROPIUM 0.5 MG NEB (SCH) NEB (08:00)
[2017-02-24 08:27] VITALS: O2SAT 97
[2017-02-24] MEDS: DOCUSATE SODIUM 50 MG/SENNA 8.6 MG TAB PO SCH (09:00)
[2017-02-24] MEDS: FOLIC ACID 1 MG TAB PO SCH (09:26)
[2017-02-24] MEDS: MULTIVITAMINS/MINERALS THERAPEUTIC TAB PO SCH (09:26)
[2017-02-24] MEDS: THIAMINE HCL 100 MG TAB PO SCH (09:26)
[2017-02-24] MEDS: PANTOPRAZOLE SOD 40 MG DELAYED RELEASE TAB PO SCH (09:26)
--- NOTE | 2017-02-24 09:26 | HHI.PR ---
Subjective Remarks Follow-up for alcohol withdrawal and urinary retention. Pt reporting painful urination (with frequency) and rectal pain this morning. Pt stated he "didn;t sleep hardly at all last night" due to "having to get up and go to the bathroom every 15 minutes of so." Pt stated sensations began about 0200 this morning. Denied blood in either urine or stool. Pt recounted having had a three week history of Leger use due to difficulty "peeing." Pt stated he came to [facility] three weeks ago and had a "catheter" placed. He later returned when it failed. He had a subsequent infection infection and that catheter was replaced; which was the one removed yesterday . Pt reported appetite is decreased. He stated no issues related to alcohol withdrawal this morning. He stated his "shake" is "about the same as usual.' He denied having been on propranolol or "anything for it in the past." Pt stated he was breathing better since breathing treatments had initiated. He said he declined one this morning "because I just couldn't take it right now." Otherwise, no acute issues noted by patient. Patient denied fever/chills, nausea, vomiting, diarrhea, constipation, abdominal /chest pain. Per RN (Bryon) had no acute issues overnight or since start of shift. Respiratory therapist reported declined breathing treatment at this time and said she would return to give him one later in the day if it were needed. Objective Vitals Vital Signs Date Time Temp Pulse Resp B/P (MAP) Pulse Ox O2 Delivery O2 Flow Rate FiO2 02/24/17 08:27 97 02/24/17 08:00 97.2 106 18 149/82 (104) 98 02/24/17 00:45 98.1 104 18 128/80 (96) 94 02/23/17 20:30 98.6 99 18 143/78 (99) 94 02/23/17 19:52 96 02/23/17 19:50 94 02/23/17 16:00 97.7 95 17 127/75 (92) 97 02/23/17 13:57 95 02/23/17 12:00 97.5 101 18 128/80 (96) 96 I/O 02/23/17 02/23/17 02/23/17 02/24/17 02/24/17 02/24/17 07:00 15:00 23:00 07:00 15:00 23:00 Intake Total 442 ml 480 ml 680 ml Output Total 200 ml 600 ml 800 ml Balance 242 ml -120 ml -120 ml Intake Oral 480 ml 680 ml IV Total 442 ml Output Urine Total 200 ml 600 ml 800 ml # Bowel Movements 0 0 Result Diagram: 02/22/1765402/22/17654 Objective Remarks GENERAL: Patient encountered laying in bed. awake, mild emotional NAD related to poor sleep and frustration related to urination. SKIN: Warm and dry. HEAD: Normocephalic. EYES: No scleral icterus. No injection or drainage. NECK: Supple, trachea midline. No lymphadenopathy. CARDIOVASCULAR: Regular rate and rhythm without murmurs, gallops, or rubs. RESPIRATORY: Breath sounds equal reduced bilaterally. No wheezes, rhonchi, or crackles. No accessory muscle use. GASTROINTESTINAL: Abdomen soft, non-tender, nondistended. MUSCULOSKELETAL: No cyanosis, or edema. Tremor not apparent. PSYCHIATRIC: Appropriate mood and affect; insight and judgment normal. Despite frustration, Mr. Parks was pleasant and cooperative. Medications and IVs Current Medications Medications (Trade) Dose Ordered Sig/Rigo Route Start Time Stop Time Status Last Admin (Norvasc) 5 mg DAILY PO 02/20/17 09:00 02/23/17 09:50 (Flomax) 0.4 mg HS PO 02/19/17 21:00 02/23/17 20:34 Ceftriaxone Sodium 1000 mg/ Sodium Chloride 100 ml @ 200 mls/hr Q24H IV 02/19/17 18:00 02/23/17 18:08 (NS Flush) 2 ml UNSCH PRN IV FLUSH 02/19/17 17:30 02/19/17 18:13 (NS Flush) 2 ml BID IV FLUSH 02/19/17 21:00 02/23/17 09:51 Potassium Chloride/Dextrose/ Sod Cl 1,000 ml @ 100 mls/hr Q10H IV 02/19/17 18:00 02/23/17 13:23 (Folate) 1 mg DAILY PO 02/19/17 17:30 02/24/17 17:29 02/23/17 09:49 (Vitamin B1) 100 mg DAILY PO 02/19/17 17:30 02/23/17 09:48 (Theragran M Tab) 1 tab DAILY PO 02/19/17 17:30 02/24/17 17:29 02/23/17 09:50 (Zofran Inj) 4 mg Q6H PRN IV PUSH 02/19/17 17:30 02/20/17 17:27 (Protonix) 40 mg DAILY PO 02/19/17 18:00 02/23/17 09:50 (Catapres) 0.1 mg Q6H PRN PO 02/19/17 17:30 (Romazicon Inj) 0.2 mg Q1M PRN IV PUSH 02/19/17 17:30 (Ativan) 1 mg Q4H PRN PO 02/19/17 17:30 02/23/17 20:34 (Ativan Inj) 1 mg Q4H PRN IV PUSH 02/19/17 17:30 (Ativan) 2 mg Q2H PRN PO 02/19/17 17:30 02/22/17 04:27 (Ativan Inj) 2 mg Q2H PRN IV PUSH 02/19/17 17:30 (Ativan Inj) 2 mg Q1H PRN IV PUSH 02/19/17 17:30 (Ativan Inj) 2 mg Q15M PRN IV PUSH 02/19/17 17:30 (Pooja-Colace) 1 tab BID PO 02/19/17 21:00 (Milk Of Magnesia Liq) 30 ml Q12H PRN PO 02/19/17 18:00 (Senokot) 17.2 mg Q12H PRN PO 02/19/17 18:00 (Dulcolax Supp) 10 mg DAILY PRN RECTAL 02/19/17 18:00 (Lactulose Liq) 30 ml DAILY PRN PO 02/19/17 18:00 (Tessalon) 100 mg TID PRN PO 02/20/17 13:15 02/22/17 11:12 (Dunmore Mariela) 1 lozenge UNSCH PRN BUCCAL 02/22/17 11:15 (Duoneb Neb) 1 ampule Q6HR WHILE AWAKE NEB NEB 02/22/17 14:00 02/23/17 19:50 (Lopressor) 25 mg Q12HR PO 02/23/17 21:00 02/23/17 20:35 Urinary Catheter: No A/P Problem List: (1) Alcohol withdrawal syndrome ICD Code: F10.239 - Alcohol dependence with withdrawal, unspecified Status: Acute (2) HTN (hypertension) ICD Code: I10 - Essential (primary) hypertension Status: Chronic (3) Constipation ICD Code: K59.00 - Constipation, unspecified Status: Acute (4) UTI (urinary tract infection) ICD Code: N39.0 - Urinary tract infection, site not specified Status: Acute (5) Balance problem ICD Code: R26.89 - Other abnormalities of gait and mobility Status: Acute Assessment and Plan Patient is a 61-year-old male with primary medical history of EtOH abuse, hypertension, urinary retention who came into the hospital for evaluation of generalized weakness, constipation, shakiness from not drinking alcohol. States that he has been drinking for more than 20 years, and has stopped drinking yesterday. States that his roommate has been giving him medications for DTs that he started to take the day before and yesterday. He hasn't been feeling well after. He also states that he doesn't know that once he started taking the medication not to mix it with alcohol. Reports tremors, weakness, multiple falls, dizziness. Denies any hallucinations. Denies any alcohol withdrawal seizures or any hospitalization related to alcohol withdrawals. Alcohol Withdrawal: range for past 24 hours 8-2. One dose of Ativan given in this time frame. Dysuria: UA ordered. Pt was prescribed Keflex for infection pre -hospitalization and placed on Rocephin. Pt to be transitioned to Bactrim Ds 800 /160 mg po BID x7 days at discharge and follow up with urology. Alcohol Withdrawal Transaminitis - related to ETOH abuse Tachycardia Macrocytic Anemia - related to ETOH - [facility] protocol. DW, he is showing more signs of withdrawals. Ativan will be given. - IVF for hydration D51/2 NS with 20MEQ K - Folic Acid, Multivit and Thiamine supplements - Pantoprazole 40mg - Seizure precaution. Neuro checks. - Patient plan to return home however he reports his roommate is also an alcoholic. Multiple falls - PT eval and treat - ST eval and treat UTI BPH,Urinary Retention - Continue with indwelling Leger catheter for now. Patient states he has an appointment with urology next week. - Leger care - Ceftriaxone IV, Flomax HTN - Continue home medications metoprolol 25 mg daily, amlodipine 5 mg - Trend BP Constipation - Bowel regimen. MOM, senokot - Enema PRN - Monitor BM DVT Prop SCDs GI Pantoprazole Case discussed with patient, RN and Dr. Crawford Discharge Planning Per case management, patient to be discharged home. Problem Qualifiers (1) Alcohol withdrawal syndrome: Qualified Codes: F10.239 - Alcohol dependence with withdrawal, unspecified (2) UTI (urinary tract infection): Qualified Codes: T83.511D - Infection and inflammatory reaction due to indwelling urethral catheter, subsequent encounter; N39.0 - Urinary tract infection, site not specified Raz Isaac Jr. Feb 24, 2017 09:26
[2017-02-24] MEDS: amLODIPine BESYLATE 5 MG TAB PO SCH (09:27)
[2017-02-24] MEDS: METOPROLOL TARTRATE 25 MG TAB PO SCH (09:27)
[2017-02-24] MEDS: SODIUM CHLORIDE 0.9% FLUSH 10 ML FLUSH IV FLUSH SCH (09:28)
[2017-02-24] MEDS: D5-1/2 NS + KCL 20 MEQ INJ 1,000 ML IV SCH (09:28)
[2017-02-24] MEDS ORDERED: BACT800T5 PO (09:30)
[2017-02-24 09:33] LABS: AUTOMATED NEUTROPHIL # 5.1 TH/MM3 (1.8-7.7); BASOPHIL # 0.1 TH/MM3 (0-0.2); EOSINOPHIL # 0.2 TH/MM3 (0-0.4); EOSINOPHIL % 2.8 % (0.0-4.0); HEMATOCRIT 33.2 % (39.0-51.0); LYMPH % 10.7 % (9.0-44.0); LYMPHOCYTE # 0.8 TH/MM3 (1.0-4.8); MEAN CELL VOLUME 100.9 FL (80.0-100.0); MEAN CORPUSCULAR HEMOGLOBIN 34.2 PG (27.0-34.0); MEAN CORPUSCULAR HGB CONC 33.9 % (32.0-36.0); MONO % 20.1 % (0.0-8.0); NEUT % 65.4 % (16.0-70.0); PLATELET COUNT 299 TH/MM3 (150-450); RED BLOOD COUNT 3.29 MIL/MM3 (4.50-5.90); WHITE BLOOD COUNT 7.7 TH/MM3 (4.0-11.0)
[2017-02-24 09:35] LABS: HEMO FLAGS AUTO DIFF
[2017-02-24 09:36] LABS: BLOOD, URINE NEG (NEG); COMMENT (UR) CULT NOT INDICATED; CULTURE IF INDICATED CULT NOT INDICATED; GLUCOSE,URINE NEG (NEG); KETONE, URINE NEG (NEG); NITRITE,URINE NEG (NEG); URINE COLOR LIGHT-YELLOW (YELLW/STRAW)
[2017-02-24 10:25] LABS: PLATELET ESTIMATE SMEAR NORMAL (NORMAL); PLATELET MORPHOLOGY NORMAL (NORMAL); SCAN/DIFF AUTO DIFF CONFIRMED
[2017-02-24 12:00] VITALS: BP 136/80; PULSE 91; RESP 18; TEMP 98.3; O2SAT 97
== END 2017-02-24 14:01 | disposition home or self-care (01) | DRG 897 ==
LOC: NEPD 14:20 → NEDA 16:45 → N07A 21:14
PROVIDERS: ADMIT Family Medicine; ATTEND Family Medicine
DX: F10.230 Alcohol dependence with withdrawal, uncomplicated (principal); R13.10 Dysphagia, unspecified; I10 Essential (primary) hypertension; N39.0 Urinary tract infection, site not specified; K59.00 Constipation, unspecified; R29.6 Repeated falls; R26.89 Other abnormalities of gait and mobility; N40.1 Benign prostatic hyperplasia with lower urinary tract symptoms; R33.8 Other retention of urine; D53.9 Nutritional anemia, unspecified; F17.210 Nicotine dependence, cigarettes, uncomplicated; R05 Cough; R60.0 Localized edema
CPT/HCPCS: 80048; 80053; 80307; 81001; 82550; 82552; 85025; 85027; 93005; 94640; 94664; 96361; 96374; J0696; J2060; J2405; J3480; J7030; Q0163

== ENCOUNTER 2017-03-11 15:42 | Observation (INO) | payer SELFPAY ==
[~2017-03-11] VITALS: Ht 180.3 cm; Wt 59.0 kg
[~2017-03-11 15:42] MED LIST changes: +BACT800T5 PO
[2017-03-11 15:55] VITALS: BP 131/75; PULSE 112; RESP 18; TEMP 96.8; O2SAT 99
--- NOTE | 2017-03-11 16:20 | PD ---
HPI Chief Complaint: Chest Pain Time Seen by Provider: 15:54 Travel History International Travel<30 days: No Contact w/Intl Traveler<30days: No Traveled to known affect area: No History of Present Illness HPI 61-year-old male complaining of syncope and chest pain. Patient states that he had a syncopal episode this afternoon. Patient states that the syncopal episode lasted short time. Patient stated when he woke up he started having substernal chest pain. The pain is aching pain pressure pain substernally. Patient denies any pain radiation. Patient denies palpitation nausea diaphoresis. Patient denies any coughing congestion fever chills. Patient has history of hypertension. Patient denies any history diabetes or hyperlipidemia. Patient is a smoker. Patient has family history of heart disease. EMS was called. Patient was given nitroglycerin which resolution of her chest pain. Patient, and headache subsequently. Blood pressure was found to be mild hypotensive. Patient was seen in the emergency room recently for urinary retention. Leger catheter inserted. Patient was given prescription for Flomax and advised to follow up with urologist. Patient has history alcohol consumption daily. Patient states that he has a shake when he stop drinking alcohol. PFSH Past Medical History Hx Anticoagulant Therapy: No Heart Rhythm Problems: Yes Cardiovascular Problems: Yes (HTN) Chemotherapy: No Cerebrovascular Accident: No Diabetes: No Diminished Hearing: No Gastrointestinal Disorders: Yes (CONSTIPATION) Genitourinary: Yes (URINARY RETENTION) Hypertension: Yes Musculoskeletal: No Neurologic: No Reproductive: No Respiratory: No Past Surgical History Abdominal Surgery: Yes (HERNIA REPAIR X 4) Hysterectomy: No Other Surgery: Yes ("a bunch of hernia surgeries" ) Social History Alcohol Use: Yes (DAILY ) Tobacco Use: Yes (4-5 CIGS/DAY) Substance Use: No Allergies-Medications (Allergen,Severity, Reaction): Coded Allergies: acetaminophen (Unverified Adverse Reaction, Intermediate, Hallucinations, 03/11/17) pt stated happened last time he took med 20 years ago hydrocodone (Unverified Adverse Reaction, Intermediate, Hallucinations, ) pt stated happened last time he took med, 20 years ago. oxycodone (Unverified Adverse Reaction, Intermediate, Hallucinations, ) pt stated happened last time he took med 20 years ago Reported Meds & Prescriptions Reported Meds & Active Scripts Active Flomax (Tamsulosin HCl) 0.4 Mg Cap 0.4 Mg PO HS Reported Metoprolol Tartrate 25 Mg Tab 25 Mg PO DAILY Norvasc (Amlodipine Besylate) 5 Mg Tab 5 Mg PO DAILY Review of Systems General / Constitutional: No: Fever Eyes: No: Visual changes HENT: No: Headaches Cardiovascular: Positive: Chest Pain or Discomfort Respiratory: No: Shortness of Breath Gastrointestinal: No: Abdominal Pain Genitourinary: No: Dysuria Musculoskeletal: No: Pain Skin: No Rash Neurologic: Positive: Syncope, No: Weakness Psychiatric: No: Depression Endocrine: No: Polydipsia Hematologic/Lymphatic: No: Easy Bruising Physical Exam Narrative GENERAL: Well-nourished, well-developed patient. SKIN: Focused skin assessment warm/dry. HEAD: Normocephalic. EYES: No scleral icterus. No injection or drainage. NECK: Supple, trachea midline. No JVD or lymphadenopathy. CARDIOVASCULAR: Regular rate and rhythm without murmurs, gallops, or rubs. RESPIRATORY: Breath sounds equal bilaterally. No accessory muscle use. GASTROINTESTINAL: Abdomen soft, non-tender, nondistended. MUSCULOSKELETAL: No cyanosis, or edema. BACK: Nontender without obvious deformity. No CVA tenderness. Neurologic exam normal. Data Data Last Documented VS Vital Signs Date Time Temp Pulse Resp B/P (MAP) Pulse Ox O2 Delivery O2 Flow Rate FiO2 03/11/17 15:58 106 03/11/17 15:55 96.8 18 131/75 (93) 99 Orders Orders Electrocardiogram (03/11/17 16:05) Complete Blood Count With Diff (03/11/17 16:05) Comprehensive Metabolic Panel (03/11/17 16:05) Creatine Kinase (Cpk) (03/11/17 16:05) Troponin I (03/11/17 16:05) Prothrombin Time / Inr (Pt) (03/11/17 16:05) Act Partial Throm Time (Ptt) (03/11/17 16:05) Chest, Single Ap (03/11/17 16:05) Iv Access Insert/Monitor (03/11/17 16:05) Ecg Monitoring (03/11/17 16:05) Oximetry (03/11/17 16:05) Thiamine Inj (Thiamine Inj) (03/11/17 18:00) Chlordiazepoxide (Librium) (03/11/17 18:00) Activity Bed Rest With Brp (03/11/17 17:58) Vital Signs (Adult) Q4H (03/11/17 17:58) Cardiac Rhythm .As Directed (03/11/17 17:58) Notify Dr: Other .PRN (03/11/17 17:58) Notify Dr. Parameters (03/11/17 17:58) Resp Oxygen Nasal Cannula (03/11/17 ) Diet Heart Healthy (03/11/17 Dinner) Ckmb (Isoenzyme) Profile (03/11/17 19:00) Ckmb (Isoenzyme) Profile (03/11/17 22:00) Troponin I (03/11/17 19:00) Troponin I (03/11/17 22:00) Electrocardiogram (03/11/17 19:00) Electrocardiogram (03/11/17 22:00) ^ Obtain (03/11/17 17:58) Sodium Chloride 0.9% Flush (Ns Flush) (03/11/17 18:00) Sodium Chloride 0.9% Flush (Ns Flush) (03/11/17 21:00) Acetaminophen (Tylenol) (03/11/17 18:00) Ondansetron Inj (Zofran Inj) (03/11/17 18:00) Radiology Rn / Telemetry NATTY.Q8H (03/11/17 17:58) Labs Laboratory Tests Test 03/11/17 16:00 White Blood Count 3.3 TH/MM3 Red Blood Count 3.72 MIL/MM3 Hemoglobin 12.5 GM/DL Hematocrit 37.5 % Mean Corpuscular Volume 100.9 FL Mean Corpuscular Hemoglobin 33.7 PG Mean Corpuscular Hemoglobin Concent 33.4 % Red Cell Distribution Width 17.8 % Platelet Count 235 TH/MM3 Mean Platelet Volume 6.8 FL Neutrophils (%) (Auto) 40.5 % Lymphocytes (%) (Auto) 42.4 % Monocytes (%) (Auto) 10.0 % Eosinophils (%) (Auto) 3.7 % Basophils (%) (Auto) 3.4 % Neutrophils # (Auto) 1.3 TH/MM3 Lymphocytes # (Auto) 1.4 TH/MM3 Monocytes # (Auto) 0.3 TH/MM3 Eosinophils # (Auto) 0.1 TH/MM3 Basophils # (Auto) 0.1 TH/MM3 CBC Comment DIFF FINAL Differential Comment Prothrombin Time 10.3 SEC Prothromb Time International Ratio 0.9 RATIO Activated Partial Thromboplast Time 24.2 SEC Blood Urea Nitrogen 5 MG/DL Creatinine 0.83 MG/DL Random Glucose 108 MG/DL Total Protein 6.8 GM/DL Albumin 3.2 GM/DL Calcium Level 8.3 MG/DL Alkaline Phosphatase 105 U/L Aspartate Amino Transf (AST/SGOT) 73 U/L Alanine Aminotransferase (ALT/SGPT) 74 U/L Total Bilirubin 0.2 MG/DL Sodium Level 142 MEQ/L Potassium Level 3.9 MEQ/L Chloride Level 109 MEQ/L Carbon Dioxide Level 27.9 MEQ/L Anion Gap 5 MEQ/L Estimat Glomerular Filtration Rate 94 ML/MIN Total Creatine Kinase 58 U/L Troponin I LESS THAN 0.02 NG/ML MDM Medical Decision Making Medical Screen Exam Complete: Yes Emergency Medical Condition: Yes Interpretation(s) 1748 PM. EKG shows sinus tachycardia rate 102. Nonspecific ST-T wave change. Last Impressions Chest X-Ray 03/11/17 1605 Signed Impressions: Service Date/Time: Saturday, March 11, 2017 16:21 - CONCLUSION: No acute disease. Jarad Guy MD 1748 PM. CBC WBC 3.3. Hemoglobin 12.5 hematocrit 37.5. MCV 100.9. CMP within normal limit. Cardiac enzymes are normal. Differential Diagnosis Differential diagnosis including vasovagal reaction, angina, NH, PE, pneumothorax, TIA, CVA, electrolyte imbalance, dehydration. Narrative Course 61-year-old male with chest pain and syncope. History of alcohol abuse. Patient states that he usually has a shake when he stopped drinking. Thiamine 100 mg IV. Librium 25 mg by mouth. Patient will be admitted to the chest pain center for chest pain. Diagnosis Primary Impression: Chest pain Qualified Codes: R07.9 - Chest pain, unspecified Additional Impression: History of alcohol abuse Admitting Information Admitting Physician Requests: Observation Abebe Delgado MD Mar 11, 2017 16:20
--- NOTE | 2017-03-11 16:24 | RADRPT ---
EXAM DATE/TIME: 03/11/2017 16:21 [place] COMPARISON: CT THORAX W CONTRAST, November 28, 2016, 19:45. CHEST SINGLE AP, December 08, 2016, 15:18. INDICATIONS : Shortness of breath. MEDICAL HISTORY : None. SURGICAL HISTORY : None. ENCOUNTER: Initial ACUITY: 2 days PAIN SCORE: 2/10 LOCATION: Bilateral chest FINDINGS: A single view of the chest demonstrates the lungs to be symmetrically aerated without evidence of mas s, infiltrate or effusion. There is hyperaeration of both lung grijalva. The previously noted bilatera l effusions have resolved. Small focal eventration of the left hemidiaphragm which is stable. The car diomediastinal contours are unremarkable. Osseous structures are intact. CONCLUSION: No acute disease. Jarad Guy MD on March 11, 2017 at 16:22 Board Certified Radiologist. This report was verified electronically.
[2017-03-11 16:32] LABS: AUTOMATED NEUTROPHIL # 1.3 TH/MM3 (1.8-7.7); BASOPHIL # 0.1 TH/MM3 (0-0.2); BASOPHIL % 3.4 % (0.0-2.0); EOSINOPHIL # 0.1 TH/MM3 (0-0.4); EOSINOPHIL % 3.7 % (0.0-4.0); HEMATOCRIT 37.5 % (39.0-51.0); HEMO FLAGS DIFF FINAL; LYMPH % 42.4 % (9.0-44.0); LYMPHOCYTE # 1.4 TH/MM3 (1.0-4.8); MEAN CELL VOLUME 100.9 FL (80.0-100.0); MEAN CORPUSCULAR HEMOGLOBIN 33.7 PG (27.0-34.0); MEAN CORPUSCULAR HGB CONC 33.4 % (32.0-36.0); NEUT % 40.5 % (16.0-70.0); PLATELET COUNT 235 TH/MM3 (150-450); RED BLOOD COUNT 3.72 MIL/MM3 (4.50-5.90); RED CELL DISTRIBUTION WIDTH 17.8 % (11.6-17.2); WHITE BLOOD COUNT 3.3 TH/MM3 (4.0-11.0)
[2017-03-11 16:44] LABS: APTT (PATIENT) 24.2 SEC (24.3-30.1); INTERNATIONAL NORMALIZED RATIO 0.9 RATIO; PROTHROMBIN TIME - PATIENT 10.3 SEC (9.8-11.6)
[2017-03-11 16:57] LABS: ALKALINE PHOSPHATASE 105 U/L (45-117); ALT (GPT) 74 U/L (12-78); ANION GAP 5 MEQ/L (5-15); AST (GOT) 73 U/L (15-37); BICARBONATE 27.9 MEQ/L (21.0-32.0); BLOOD UREA NITROGEN 5 MG/DL (7-18); CHLORIDE 109 MEQ/L (98-107); GLOMERULAR FILTRATION RATE 94 ML/MIN (>89); POTASSIUM 3.9 MEQ/L (3.5-5.1); SODIUM (NA) 142 MEQ/L (136-145); TOTAL BILIRUBIN ADULT 0.2 MG/DL (0.2-1.0)
[2017-03-11 16:58] LABS: CREATINE KINASE 58 U/L (39-308)
[2017-03-11] MEDS ORDERED: ONDANSETRON HCL 4 MG/2 ML VIAL IV PUSH PRN (18:00)
[2017-03-11] MEDS ORDERED: SODIUM CHLORIDE 0.9% FLUSH 10 ML FLUSH IV FLUSH PRN (18:00)
[2017-03-11] MEDS ORDERED: THIAMINE INJ 100 MG in SODIUM CHLORIDE 0.9% INJ 100 ML IV ONE (18:00)
[2017-03-11] MEDS ORDERED: ACETAMINOPHEN 500 MG CPLT PO PRN (18:00)
[2017-03-11] MEDS ORDERED: chlordiazePOXIDE 25 MG CAP PO ONE (18:00)
[2017-03-11] MEDS ORDERED: chlordiazePOXIDE 25 MG CAP PO PRN (18:15)
[2017-03-11] MEDS ORDERED: NITROGLYCERIN 0.4 MG SL 25 TABS/BTL SL PRN (18:30)
[2017-03-11] MEDS ORDERED: LORazepam 1 MG TAB PO PRN (18:45)
[2017-03-11] MEDS ORDERED: FLUMAZENIL 0.5 MG/5 ML VIAL IV PUSH PRN (18:45)
[2017-03-11] MEDS ORDERED: LORazepam 2 MG/ML VIAL IV PUSH PRN ×4 (18:45)
[2017-03-11] MEDS ORDERED: LORazepam 2 MG TAB PO PRN (18:45)
[2017-03-11 19:15] VITALS: BP 128/71; PULSE 103; RESP 19; TEMP 97.3; O2SAT 96
[2017-03-11 19:37] LABS: CREATINE KINASE 67 U/L (39-308)
[2017-03-11] MEDS: SODIUM CHLORIDE 0.9% FLUSH 10 ML FLUSH IV FLUSH SCH (19:59)
[2017-03-11 20:04] VITALS: PULSE 110
[2017-03-11] MEDS ORDERED: HYDROmorphone HCL PF 0.5 MG/0.5 ML SYRINGE IV PRN (20:45)
[2017-03-11] MEDS: ACETAMINOPHEN 500 MG CPLT PO PRN (20:56)
[2017-03-11 22:58] LABS: CREATINE KINASE 55 U/L (39-308)
[2017-03-11 23:30] VITALS: O2SAT 97
[2017-03-11 23:33] VITALS: BP 149/85; PULSE 109; RESP 19; TEMP 98; O2SAT 97
[2017-03-12] VITALS (8 sets, daily range): BP systolic 156–164; BP diastolic 87–93; PULSE 103–114; RESP 16–20; TEMP 96.8–98.5; O2SAT 95–98
[2017-03-12] MEDS: ACETAMINOPHEN 500 MG CPLT PO PRN (06:19)
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
[2017-03-12] MEDS ORDERED: KETOROLAC TROMETHAMINE 30 MG/ML (IVP) VIAL IV PUSH ONE (09:00)
[2017-03-12] MEDS ORDERED: THIAMINE HCL 100 MG TAB PO SCH (09:00)
[2017-03-12] MEDS ORDERED: MULTIVITAMINS/MINERALS THERAPEUTIC TAB PO SCH (09:00)
[2017-03-12] MEDS ORDERED: FOLIC ACID 1 MG TAB PO SCH (09:00)
[2017-03-12] MEDS: SODIUM CHLORIDE 0.9% FLUSH 10 ML FLUSH IV FLUSH SCH (09:35)
[2017-03-12] MEDS ORDERED: REGADENOSON INJ 0.4 MG/5 ML SYR ONE (10:08)
--- NOTE | 2017-03-12 13:29 | RADRPT ---
EXAM DATE/TIME: 03/12/2017 10:26 [facility] COMPARISON: No previous studies available for comparison. INDICATIONS : Chest pain with syncope. Angina. DOSE: 27.3 mCi Tc99m Myoview at stress. 8.7 mCi Tc99m Myoview at rest. 0.4 mg Lexiscan STRESS SYMPTOMS: Chest pressure, shortness of breath. EJECTION FRACTION: 62% MEDICAL HISTORY : Hypertension. Smoker. ETOH abuse. SURGICAL HISTORY : Umbilical hernia repair. ENCOUNTER: Initial ACUITY: 1 day PAIN SCALE: 0/10 LOCATION: chest TECHNIQUE: The patient underwent pharmacologic stress with infusion of prescribed dose. Continuous ECG tracing was monitored during stress. Gated SPECT imaging was performed after stress and conventional SPECT i maging was performed at rest. The examination was performed on a SPECT/CT scanner, both attenuation and non-corrected datasets were reviewed. FINDINGS: DISTRIBUTION: The maximum perfused segment at stress is in the anterolateral wall. PERFUSION STUDY: The pattern of perfusion at stress is within normal limits. GATED STUDY: There is intact wall motion and thickening without hypokinetic or dyskinetic segments. CONCLUSION: No reversible defects observed to suggest acute ischemia. RISK CATEGORY: Low Austen López Jr., MD on March 12, 2017 at 13:26 Board Certified Radiologist. This report was verified electronically.
--- NOTE | 2017-03-12 13:44 | HHI.DCPOC ---
Discharge Care Plan Diagnosis: (1) H/O urinary retention (2) Leger catheter in place on admission (3) Musculoskeletal chest pain (4) History of alcohol abuse Goals to Promote Your Health * To prevent worsening of your condition and complications * To maintain your health at the optimal level Directions to Meet Your Goals Take your medications as prescribed Follow your dietary instruction Follow activity as directed Keep your appointments as scheduled Take your immunizations and boosters as scheduled If your symptoms worsen call your PCP, if no PCP go to Urgent Care Center or Emergency Room Smoking is Dangerous to Your Health. Avoid second hand smoke Call the 24-hour hour crisis hotline for domestic abuse at [facility] [place] Mar 12, 2017 13:44
--- NOTE | 2017-03-12 14:09 | TR ---
Date Performed: 03/12/2017 Time Performed: 10:58:14 DOCTOR: Satnam Pedroza DRUG LIST: CLINICAL HISTORY: ANGINA REASON FOR TEST: REASON FOR ENDING: OBSERVATION: CONCLUSION: Lexiscan stress test was performed under standard four minute protocol. Radionuclid e was injected one minute prior to ending the test. No electrocardiographic abormalities were present to suggest ischemia. Nuclear imaging and interpretation are pending. COMMENTS:
--- NOTE | 2017-03-12 14:18 | EKG ---
Date Performed: 03/11/2017 Time Performed: 21:58:37 PTAGE: 61 years EKG: SINUS TACHYCARDIA ABNORMAL RHYTHM ECG PREVIOUS TRACING : 03/11/2017 19.20 Since previous tracing, no significant change noted DOCTOR: Satnam Pedroza Interpretating Date/Time 03/12/2017 14:16:28
--- NOTE | 2017-03-12 14:18 | EKG ---
Date Performed: 03/11/2017 Time Performed: 19:20:24 PTAGE: 61 years EKG: SINUS TACHYCARDIA ABNORMAL RHYTHM ECG PREVIOUS TRACING : 03/11/2017 15.56 Since previous tracing, no significant change noted DOCTOR: Satnam Pedroza Interpretating Date/Time 03/12/2017 14:18:16
--- NOTE | 2017-03-12 14:19 | EKG ---
Date Performed: 03/11/2017 Time Performed: 15:56:29 PTAGE: 61 years EKG: SINUS TACHYCARDIA ABNORMAL RHYTHM ECG INTERPRETATION BASED ON A DEFAULT AGE OF 40 YEARS PREVIOUS TRACING : 02/19/2017 15.34 Since previous tracing, no significant change noted DOCTOR: Satnam Pedroza Interpretating Date/Time 03/12/2017 14:18:52
== END 2017-03-12 15:16 | disposition home or self-care (01) ==
LOC: NEPC 15:42 → NEDA 18:04 → NEPHCDU 18:56
DX: R07.9 Chest pain, unspecified (principal); R33.9 Retention of urine, unspecified; R55 Syncope and collapse; I10 Essential (primary) hypertension; Z82.49 Family history of ischemic heart disease and other diseases of the circulatory system; R51 Headache; F17.210 Nicotine dependence, cigarettes, uncomplicated; R00.0 Tachycardia, unspecified; N40.1 Benign prostatic hyperplasia with lower urinary tract symptoms; Z79.899 Other long term (current) drug therapy; F10.239 Alcohol dependence with withdrawal, unspecified
CPT/HCPCS: 71010; 78452; 80053; 82550; 82948; 84484; 85025; 85610; 85730; 93005; 93017; A9502; J1170; J1885; J2785; J3411; 96365; 96375; G0378